=== PATIENT | female | born 1940 | race Caucasian/White ===

== ENCOUNTER 2023-08-10 14:12 | Outpatient (AMB) | payer MEDICARE, OTHER, SELFPAY ==
--- NOTE | 2023-08-10 14:36 | A.OFFPC_ITS ---
Vital Signs 08/10/23 14:46 Height 5 ft 2 in Weight 142 lb 6 oz BMI 26.0 BP 142/70 H Blood Pressure Location Lt brachial Position Sitting Pulse 78 Pulse Source Pulse Oximeter Pulse Oximetry (%) 98 Oxygen Delivery Method Room Air Intake Visit Reasons: HLD Gas Pump Attendant Required: No Accompanied by: Self / Same As Patient Allergies No Known Allergies Allergy (Verified 08/10/23 14:58) Medication List - Last Reconciled 08/10/23 by Eusebio Muñoz PA-C alprazolam 0.25 mg PO TID PRN amlodipine 10 mg PO DAILY hydrochlorothiazide 12.5 mg PO DAILY nystatin 1 appl topical BID 30 days nystatin 1 appl topical BID 30 days Tobacco use date assessed: 01/23/22 Fall risk assessment: No Falls in past year Last assessed Fall Risk: 08/10/23 Dental Screening Dental Screen Date: 08/10/23 Did you have a dental visit in the last 12 months?: Yes Did you have a dental problem in the last 6 months where you did not have access to dental care?: No Was dental information given to patient?: Patient has dentist HPI HLD HPI Details Patient is a 83 year female here today for follow-up visit. Patient has a past history significant for hypertension, HLD, generalized anxiety disorder, macular degeneration Concern--> reports she has been having decreased hearing over the last several years. She would like to get a hearing exam to evaluate for any sense of neural hearing loss and the need for amplification. .. HTN: Blood pressure has been well managed with current dose of amlodipine and hydrochlorothiazide. Denies any chest pain, dizziness or headaches. Blood pressure today in office slightly elevated. She reports that home blood pressures are stable 110s to 120 systolic. .. HLD: Most recent labs showing improved total cholesterol and LDL--> chol (250) and LDL (154) . She has been more physically active and watching her diet. She is not interested in restarting statin therapy as it caused her myalgias. Macular degeneration: Has underwent new treatment with her clinical research nurse coordinator in now macular degeneration is much improved. [facility] Medical History Encounter for Medicare annual wellness exam Exposure to COVID-19 virus Generalized anxiety disorder HTN (hypertension) Visit for suture removal Surgical History History of cataract surgery History of hysterectomy Family History Mother No problems noted. Father No problems noted. Social History Housing: House Alcohol intake: never Patient Tobacco Use Status: Never used Tobacco e-Cigarette/Vaping Use: Never Used Second Hand Smoke Exposure: No service: No Current occupational status: retired Cognitive needs: No Hearing needs: No Vision needs: Yes Questionnaire Thrive Questionnaire Date Thrive assessed: 12/22/22 AAYUSH-7 AMB Questionnaire AAYUSH-7 Date AAYUSH - 7 assessed: 12/22/22 Source: Developed by Drs. Fadi Millan, Za Brooks, Arnoldo Mendez and colleagues, with an educational sophie from [employer]. Review of Systems Const Denies headache(s) Eyes Denies loss of vision ENT Denies vertigo, Denies dizziness, Denies headache(s) and Denies sore throat Card Denies chest pain, Denies leg edema and Denies lightheadedness Resp Denies cough, Denies hemoptysis and Denies wheezing GI Denies abdominal pain, Denies melena, Denies constipation, Denies diarrhea and Denies vomiting Denies urinary frequency, Denies dysuria and Denies urinary urgency Musc Denies arthralgias, Denies joint swelling, Denies numbness and Denies tingling Neuro Denies Abnormal speech present, Denies behavioral changes, Denies vertigo, Denies dizziness, Denies headache(s), Denies loss of vision, Denies memory loss, Denies numbness and Denies tingling Psych Denies anxiety, Denies behavioral changes, Denies depression, Denies memory loss and Denies panic attacks Alex/Lymph Denies easy bleeding and Denies easy bruising Aller/Immun Denies wheezing Physical exam (Primary Care) Vital Signs: Last Vital Signs Pulse 78 08/10/23 14:46 BP 142/70 H 08/10/23 14:46 Pulse Ox 98 08/10/23 14:46 Oxygen Delivery Method Room Air 08/10/23 14:46 BMI result Body Mass Index 26.0 Tobacco/Smoking Status: Tobacco use Status Tobacco use date assessed 01/23/22 08/10/23 14:37 Patient Tobacco Use Status Never used Tobacco 08/10/23 14:37 e-Cigarette/Vaping Use Never Used 08/10/23 14:37 Thrive Assessment: Date of Thrive Assessment Date Thrive assessed 12/22/22 08/10/23 14:37 Const General: healthy appearing, no acute distress, alert and awake Nutritional Appearance: well nourished Orientation/consciousness: oriented to person, oriented to place and oriented to time HENMT Ears: TM's normal bilaterally General nose exam: Normal nasal mucous membranes and turbinates present Eyes Conjunctivae: conjunctivae normal Sclerae: sclerae normal Pupils: Equal, round and reactive pupils present Neck Neck: Yes no lymphadenopathy and Yes no JVD Thyroid: Thyroid normal Carotids: no bruits Resp Effort & Inspection: normal respiratory effort and not tachypneic Auscultation: no crackles, no rales, no rhonchi and no wheezes Cardio Rate: regular rate Rhythm: regular rhythm Heart sounds: no murmurs and normal S1 and S2 GI Palpation (GI): Soft to palpation, nontender, no hepatomegaly and no splenomegaly Auscultation: normal bowel sounds Skin General skin exam: no rashes or lesions noted and dry skin Neuro General: oriented to person, oriented to place and oriented to time Cranial nerves: Yes Equal, round and reactive pupils present Speech: No Abnormal speech present Gait exam (Neuro): Normal gait present Motor exam (neuro): no tremor noted Extrem Right upper extremity: full ROM Left upper extremity: full ROM Right lower extremity: full ROM; no edema Left lower extremity: full ROM; no edema Psych Mental Status: mental status grossly normal Speech and movement: Normal speech and movement present Affect: normal affect Attitude: cooperative Thought process: Normal thought process present Office Procedures Flu Questionnaire Does the patient have a severe egg allergy?: No Does the patient have severe life threatening allergies?: No Does the patient have a fever or illness today?: No Has the patient ever had Guillain-[place] Syndrome?: No Has the patient ever had any past reaction to a flu shot?: No Immunizations flu vacc [id number] 6mos up(PF) 60 mcg(15 mcgx4)/0.5 mL IM syringe Performing Provider: Eusebio Muñoz PA-C Performing Location: [facility] by: MAXIMILIAN Aguero on 08/10/23 15:16 Dose Route Admin Location Dispensed Lot Number Expiration Date NDC Tobacco Drying Machine Operator 0.5 mL IM Left Deltoid 0.5 mL [id number] 04/02/24 56089-491-99 Air[employer] VIS Given Date VIS Provided VIS Publication Date 08/10/23 Single Vaccine 21 Eligibility Eligibility Date Funding Source Not [facility] Eligible 08/10/23 Private Assessment and Plan Assessment & Plan (1) HTN (hypertension): Code(s): I10 - Essential (primary) hypertension Qualifiers: Hypertension type: primary hypertension Qualified Code(s): I10 - Essential (primary) hypertension Plan: Blood pressure today in office slightly elevated. She reports home blood pressures are 120s over 80s. Denies any chest discomfort, shortness of breath or dizziness. Continue her on her current doses of blood pressure medication with goal blood pressure to be below 145/90. (2) Hyperlipidemia: Code(s): E78.5 - Hyperlipidemia, unspecified Qualifiers: Hyperlipidemia type: mixed hyperlipidemia Qualified Code(s): E78.2 - Mixed hyperlipidemia Plan: Patient's most recent labs showing elevated total cholesterol at 250, LDL of 154, though has improved from previous. She has been working on lifestyle modifications on reducing her cholesterol. She is willing to try [place] threes. She has been on statin therapy in the past though reports side effects of polyarthralgia . Goal LDL to be below 160 (3) Sensorineural hearing loss (SNHL): Code(s): H90.5 - Unspecified sensorineural hearing loss Qualifiers: Laterality: bilateral Qualified Code(s): H90.3 - Sensorineural hearing loss, bilateral Plan: She reports decreased hearing over the last several years. She would like to get a hearing exam for evaluation for hearing aids. Orders: Orders Influenza [id number] Immunization 08/10/23 Z23 - Encounter for immunization Microalbumin, Random (w Creat) 08/10/23 I10 - Essential (primary) hypertension Comprehensive [place]. Panel Fast 08/10/23 I10 - Essential (primary) hypertension Lipid Panel 08/10/23 E78.2 - Mixed hyperlipidemia Complete Blood Count no Diff 08/10/23 I10 - Essential (primary) hypertension Referrals Speech and Hearing Referral H90.3 - Sensorineural hearing loss, bilateral Medications: Changed From alprazolam 0.25 mg PO TID PRN 20 tabs 0RF anxiety To alprazolam 0.25 mg PO TID 4 days 12 tabs 0RF anxiety Coding Level of Care Code Est Pt Level 4 (46913) Diagnoses Primary hypertension I10 Hypertension type: primary hypertension Mixed hyperlipidemia E78.2 Hyperlipidemia type: mixed hyperlipidemia Sensorineural hearing loss (SNHL) of both ears H90.3 Laterality: bilateral
[2023-08-10 14:46] VITALS: BP 142/70; PULSE 78; O2SAT 98; BMI 26.0
== END 2023-08-10 15:34 | disposition home or self-care (01) ==
PROVIDERS: PCP Physician Assistant; Visit Provider Physician Assistant
DX: Z23 Encounter for immunization (principal)
CPT/HCPCS: 90471; 90686; 99214

== ENCOUNTER 2024-04-05 11:16 | Emergency (ER) | payer OTHER, MEDICARE, SELFPAY ==
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
[2024-04-05 11:22] VITALS: BP 180/100; PULSE 98; O2SAT 99
[2024-04-05 11:23] VITALS: BP 175/81; PULSE 93; RESP 19; TEMP 36.6; O2SAT 98; BMI 28.7
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
--- OUTSIDE RECORDS SUMMARY | 2024-04-05 12:00 | XMS_ITS | Continuity of Care Document ---
Author Organization [facility] ter Address [address] [place] [id number]- Care Team Providers Care Furniture Assembler Name Role Phone Valentin De Santiago MD Primary Care Physician Encounter [facility] [place] Date(s): 11/13/19 - 11/13/[address] [address]- [facility] Attending Physician: Valentin De Santiago MD Allergies, Adverse Reactions, Alerts Substance Reaction Severity Status NKA Active Medications meloxicam 7.5 mg oral tablet 1 tablet = 7.5 mg, By Mouth, Daily, # 30 tablet, 1 Refills, Maintenance, 02/06/15 17:05:56, Tablet,1 tablet By Mouth Daily Start Date: 02/06/15 Status: Ordered Supartz 10 mg/mL intra-articular solution = 25 mg, Intra-arterial, Every week, Lot # [id number] exp 05/03/2018, # 2.5 mL, 0 Refills, Maintenance, 08/14/15 16:16:05, Solution Start Date: 08/14/15 Status: Ordered Supartz 10 mg/mL intra-articular solution = 25 mg, Intra-arterial, Every week, L Knee injected by Dr. Barajas Lot #[id number] exp 05/03/18, # 2.5 mL, 0 Refills, Maintenance, 08/23/15 11:50:28, Solution Start Date: 08/23/15 Status: Ordered Voltaren Topical 1% topical gel 1 application, Topically, 4 times a day, PRN for pain, # 100 Gm, 0 Refills, Maintenance, 03/12/15 11:51:42, Gel, 1 application Topically 4 times a day,PRN:for pain Start Date: 03/12/15 Status: Ordered Social History Social History Type Response Smoking Status Never smoker entered on: 03/25/16 Sex
--- OUTSIDE RECORDS SUMMARY | 2024-04-05 12:00 | XMS_ITS | Continuity of Care Document ---
Author Organization [facility] Address [address] [place] [address], [address] [place] [address]- Care Team Providers Care Art Conservator Name Role Phone Valentin De Santiago MD [facility] Phys[id number] Date(s): [facility]/23/22 - 05/23/22 [facility] [address] [facility] [place] [address]- Attending Physician: Jovanny Ewing Admitting Physician: AdmJovanny segovia Referring Physician: Admtr, [id number] Allergies, Adverse Reactions, Alerts No Known Allergies Immunizations Given and Recorded Vaccine Date Status Refusal Reason tetanus/diphtheria/pertussis, acel(Tdap) 01/16/22 Given Medications meloxicam 7.5 mg oral tablet 1 tablet = 7.5 mg, By Mouth, Daily, # 30 tablet, 1 Refills, Maintenance, 02/06/15 17:05:56, Tablet,1 tablet By Mouth Daily Start Date: 02/06/15 Status: Ordered Supartz 10 mg/mL intra-articular solution = 25 mg, Intra-arterial, Every week, Lot # [id number] exp 05/03/2018, # 2.5 mL, 0 Refills, Maintenance, 08/14/15 16:16:05, Solution Start Date: 08/14/15 Status: Ordered Supartz 10 mg/mL intra-articular solution = 25 mg, Intra-arterial, Every week, L Knee injected by Dr. Barajas Lot #[id number] 05/03/18, # 2.5 mL, 0 Refills, [...]
--- OUTSIDE RECORDS SUMMARY | 2024-04-05 12:00 | XMS_ITS | Continuity of Care Document ---
[facility] Address [address] [place] [address], [address] [address]- Care Team Providers Care Bit Grinder Name Role Phone Valentin De Santiago MD Primary Care Physician [phone] [id number] [address] [facility] [place] [address]- Attending Physician: Faye Pond MD Referring Physician: Eusebio Castro Allergies, Adverse Reactions, Alerts No Known Allergies [...] 25 mg, Intra-arterial, Every week, Lot # [id number] exp 05/03/2018, # 2.5 mL, 0 Refills, Maintenance, 08/14/15 16:16:05, Solution Start Date: 08/14/15 Status: Ordered Supartz 10 mg/mL intra-articular solution = 25 mg, Intra-arterial, Every week, L Knee injected by Dr. Barajas Lot #[id number] exp 05/03/18, # 2.5 mL, 0 Refills, [...]
--- OUTSIDE RECORDS SUMMARY | 2024-04-05 12:00 | XMS_ITS | Continuity of Care Document ---
Author Organization [facility] Address [address] [place] [address]- Care Team Providers Care Mixer Operator Vacuum Pan Salt Name Role Phone Valentin De Santiago MD Primary Care Physician [phone] Encounter [facility] [place] Date(s): 01/16/22 - 01/16/[address] [address]- Discharge Disposition: A-D/C Home Attending Physician: Latha Gavin MD Admitting Physician: Latha Gavin MD Referring Physician: Not on Staff, Referring MD Allergies, Adverse Reactions, Alerts No Known Allergies [...] 25 mg, Intra-arterial, Every week, Lot # [id number] exp 05/03/2018, # 2.5 mL, 0 Refills, Maintenance, 08/14/15 16:16:05, Solution Start Date: 08/14/15 Status: Ordered Supartz 10 mg/mL intra-articular solution = 25 mg, Intra-arterial, Every week, L Knee injected by Dr. Barajas Lot #[id number] exp 05/03/18, # 2.5 mL, 0 Refills, Maintenance, 08/23/15 11:50:28, Solution Start Date: 08/23/15 Status: Ordered Voltaren Topical 1% topical gel 1 application, Topically, 4 times a day, PRN for pain, # 100 Gm, 0 Refills, Maintenance, 03/12/15 11:51:42, Gel, 1 application Topically 4 times a day,PRN:for pain Start Date: 03/12/15 Status: Ordered Vital Signs Most recent to oldest [Reference Range]: 1 2 Height 158 cm (01/16/22 5:01 PM) 158 cm (01/16/22 4:59 PM) Weight 67 kg (01/16/22 5:01 PM) 67 kg (01/16/22 4:59 PM) Oxygen Saturation [94-100 %] 97 % (01/16/22 7:00 PM) 100 % (01/16/22 4:59 PM) Pulse Rate [55-90 bpm] 94 bpm *H* (01/16/22 7:00 PM) 116 bpm *H* (01/16/22 4:59 PM) Body Mass Index [18.5-24.99] 26.84 *H* (01/16/22 4:59 PM) Blood Pressure [90-138/55-84 mm Hg] 185/ 92mm Hg *H* (01/16/22 7:00 PM) 182/94mm Hg *H* (01/16/22 4:59 PM) Respiratory Rate [16-30 br/min] 20 br/mi n (01/16/22 7:00 PM) 22 br/min (01/16/22 4:59 PM) Temperature [96.8-100.4 DegF] 98.3 DegF (01/16/22 4:59 PM) Mode of Delivery (Oxygen) Room air (01/16/22 7:00 PM) Room air (01/16/22 4:59 PM) Blood pressure sites Arm, right (01/16/22 4:59 PM) Temperature Route Temporal (01/16/22 4:59 PM) Dry Weight 67 kg (01/16/22 5:01 PM) 67 kg (01/16/22 4:59 PM) Social History Social History Type Response Smoking Status Never smoker entered on: 03/25/16 Sex
[2024-04-05 12:14] LABS: MANUAL DIFF FLAG NO
[2024-04-05 12:20] LABS: Basophils Percent Auto 0.4 % (0-2); Eosinophils Absolute Auto 0.2 X10*3/uL (0.0-0.4); Eosinophils Percent Auto 3.2 % (0-4); Hematocrit 35.8 % (37.0-47.0); Hemoglobin 12.3 g/dl (12.0-16.0); Imm Gran Abs Auto 0.03 X10*3/uL (0.00-0.03); Imm Gran Pct Auto 0.6 % (0.0-0.4); Lymphocytes Absolute Auto 1.1 X10*3/uL (1.2-4.9); Lymphocytes Percent Auto 21.2 % (20-40); Mean Corpuscular HGB Conc 34.4 g/dl (31.0-35.0); Mean Corpuscular Hemoglobin 29.9 pg (27.0-33.0); Mean Corpuscular Volume 87.1 fL (80.0-98.0); Mean Platelet Volume 9.2 fL (9.4-12.3); Monocytes Absolute Auto 0.3 X10*3/uL (0.1-1.2); Monocytes Percent Auto 5.5 % (2-11); Neutrophils Absolute Auto 3.6 x10*3/uL (2.0-8.3); Neutrophils Percent Auto 69.1 % (45-73); Platelet Count 248 X10*3/uL (160-400); Red Blood Count 4.11 X10*6/uL (4.20-5.50); White Blood Count 5.2 X10*3/uL (4.8-10.8)
[2024-04-05 12:33] LABS: Alanine Aminotransferase 14 U/L (0-31); Albumin Level 4.2 g/dL (3.5-5.0); Alkaline Phosphatase 89 U/L (39-117); Anion Gap 14 (12-20); Aspartate Amino Transferase 13 U/L (5-31); Bilirubin Total 0.4 mg/dL (0.0-1.0); Blood Urea Nitrogen 15 mg/dL (9-16); Calcium 9.8 mg/dL (8.4-10.2); Carbon Dioxide 26 mmol/L (22-29); Chloride 105 mmol/L (96-108); Creatinine Clr Calc Pharmacy 61.1; Estimated Glomerular Filt Rate > 60; Glucose Random 106 mg/dL (60-115); Potassium 2.6 mmol/L (3.3-5.1); Sodium 142 mmol/L (135-145)
[2024-04-05 12:40] LABS: INTERNATIONAL NORM RATIO 0.9 (0.9-1.1); Prothrombin Time 10.5 SEC (11.1-13.3)
[2024-04-05 12:43] LABS: Partial Thromboplastin Time 25.4 SEC (26.0-36.8)
[2024-04-05 13:52] LABS: Magnesium 1.8 mg/dL (1.6-2.6)
[2024-04-05] MEDS: iohexoL 350 MG/ML 100 ML INFUS..BTL IV (13:59)
[2024-04-05] MEDS: Potassium Chloride ER 20 MEQ TAB.ER.PRT PO (16:11)
[2024-04-05] MEDS: Potassium Chloride Packet 20 MEQ PACKET 40 MEQ PO (16:11)
[2024-04-05 16:16] VITALS: BP 166/79; PULSE 92; RESP 20; TEMP 36.6; O2SAT 97
== END 2024-04-05 16:17 | disposition home or self-care (01) ==
PROVIDERS: Physician Assistant Medical; Emergency Provider Emergency Medicine
DX: R07.9 Chest pain, unspecified (principal); R10.9 Unspecified abdominal pain; Z04.1 Encounter for examination and observation following transport accident; I10 Essential (primary) hypertension; E78.5 Hyperlipidemia, unspecified; E87.6 Hypokalemia
CPT/HCPCS: 36415; 70450; 71260; 72125; 74177; 80053; 83735; 85025; 85610; 85730; 99283; 99284; Q9967

== ENCOUNTER 2024-04-17 10:47 | Outpatient (AMB) | payer OTHER, SELFPAY ==
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
[2024-04-17 10:48] VITALS: BP 154/70; PULSE 74; O2SAT 98; BMI 28.1
== END 2024-04-17 11:43 | disposition home or self-care (01) ==
LOC: HO.HMGH 10:47
PROVIDERS: PCP Physician Assistant; Visit Provider Physician Assistant
DX: R07.81 Pleurodynia (principal); V89.2XXA Person injured in unspecified motor-vehicle accident, traffic, initial encounter; E87.6 Hypokalemia
CPT/HCPCS: 99214

== ENCOUNTER 2024-04-21 08:42 | Outpatient (REF) | payer MEDICARE, SELFPAY | END 2024-04-21 08:43 | disposition home or self-care (01) | LOC: HO.MAMMO 08:42 | PROVIDERS: PCP Physician Assistant; Visit Provider Physician Assistant | DX: Z12.31 Encounter for screening mammogram for malignant neoplasm of breast (principal) | CPT/HCPCS: 77063; 77067 ==

== ENCOUNTER → 2024-04-21 08:45 | Outpatient (BNV) | payer MEDICARE, SELFPAY | PROVIDERS: PCP Physician Assistant; Visit Provider Radiology Diagnostic Radiology | DX: Z12.31 Encounter for screening mammogram for malignant neoplasm of breast (principal) | CPT/HCPCS: 77063; 77067 ==

== ENCOUNTER 2024-06-20 10:25 | Outpatient (AMB) | payer MEDICARE, SELFPAY ==
--- NOTE | 2024-06-20 10:27 | MHC.PC.OV ---
Vital Signs 06/20/24 10:29 Height 5 ft 1 in Weight 149 lb 4 oz BMI 28.2 BP 138/70 Blood Pressure Location Lt brachial Position Sitting Pulse 63 Pulse Source Pulse Oximeter Pulse Oximetry (%) 97 Oxygen Delivery Method Room Air Intake Visit Reasons: Pre-Op Knee Surgery 07/04/24 DR. Lott Note: Patient is here for a Pre-op for Partial right knee replacement surgery scheduled with Dr Van Joseph on 07/04/24. Code And Test Clerk Required: No Laboratory Veterinarian: Not Required per policy Accompanied by: Self / Same As Patient Allergies No Known Allergies Allergy (Verified 06/20/24 10:49) Medication List - Last Reconciled 06/20/24 by Michela Yadav PA-C amlodipine 10 mg PO DAILY Tobacco use date assessed: 06/20/24 Fall risk assessment: No Falls in past year Last assessed Fall Risk: 06/20/24 Dental Screening Dental Screen Date: 04/17/24 HPI Pre-Op Knee Surgery 07/04/24 HPI Details 83-year-old female with past medical history of hypertension, hyperlipidemia, generalized anxiety disorder, macular degeneration last seen by RUBI coming in for preoperative visit.? Patient is scheduled to have partial knee replacement 07/04/[address] Joseph through [employer] [facility]. No history of MT, CVA, CHF or diabetes mellitus. Patient has had anesthesia in the past with no issue and states he will be using a nerve block with conscious sedation for this procedure. She has no acute concerns today. Hypertension: 130/70 blood pressure is well controlled at this time on amlodipine 10 mg. [facility] Medical History Visit for suture removal Encounter for Medicare annual wellness exam Generalized anxiety disorder Exposure to COVID-19 virus HTN (hypertension) Surgical History (Updated 06/20/24 @ 10:50 by Michela Yadav PA-C) S/P right knee arthroscopy History of cataract surgery History of hysterectomy Family History Mother No problems noted. Father No problems noted. Social History Housing: House Alcohol intake: never Patient Tobacco Use Status: Never used Tobacco e-Cigarette/Vaping Use: Never Used Second Hand Smoke Exposure: No service: No Current occupational status: retired Cognitive needs: No Hearing needs: No Vision needs: Yes Questionnaire Thrive Questionnaire Date Thrive assessed: 04/17/24 Are you currently unemployed and looking for a job?: No AAYUSH-7 AMB Questionnaire AAYUSH-7 Date AAYUSH - 7 assessed: 04/17/24 Source: Developed by Drs. Fadi Millan, Za Brooks, Arnoldo Mendez and colleagues, with an educational sophie from [email or web address]. Review of Systems Const Denies body aches, Denies chills, Denies fever(s), Denies headache(s) and Denies poor appetite Eyes Reports no additional complaints ENT Denies dysphagia, Denies dizziness, Denies headache(s) and Denies odynophagia Card Denies chest pain, Denies syncope, Denies edema, Denies irregular heart rhythm, Denies lightheadedness and Denies dyspnea Resp Denies cough and Denies dyspnea GI Denies abdominal pain, Denies constipation, Denies dysphagia, Denies diarrhea, Denies nausea, Denies odynophagia and Denies vomiting Reports no additional complaints Musc Details: Right knee pain Reports no additional complaints and Reports abnormal gait Skin/Breast Reports system reviewed and no additional complaints, except as documented Neuro Reports abnormal gait, Denies dizziness, Denies syncope and Denies headache(s) Psych Reports no additional complaints Physical exam (Primary Care) Vital Signs: Last Vital Signs Pulse 63 06/20/24 10:29 BP 138/70 06/20/24 10:29 Pulse Ox 97 06/20/24 10:29 Oxygen Delivery Method Room Air 06/20/24 10:29 BMI result Body Mass Index 28.2 Tobacco/Smoking Status: Tobacco use Status Tobacco use date assessed 06/20/24 06/20/24 10:35 Patient Tobacco Use Status Never used Tobacco 06/20/24 10:35 e-Cigarette/Vaping Use Never Used 06/20/24 10:35 Thrive Assessment: Date of Thrive Assessment Date Thrive assessed 04/17/24 06/20/24 10:35 Const General: cooperative, healthy appearing, comfortable and no acute distress Orientation/consciousness: patient oriented x3 HENMT Head: Yes normocephalic Ears: hearing grossly normal bilaterally General nose exam: Normal external nose present Eyes General: appearance normal, both eyes and all related structures Conjunctivae: conjunctivae normal Neck Neck: Yes full ROM and Yes no lymphadenopathy Resp Effort & Inspection: normal respiratory effort Auscultation: clear to auscultation bilaterally, no crackles, no rales, no rhonchi and no wheezes Cardio Rate: regular rate Rhythm: regular rhythm Skin General skin exam: no rashes or lesions noted Neuro General: patient oriented x3 Gait exam (Neuro): Normal gait present Extrem General: Yes normal to inspection, Yes full ROM and No edema Psych Affect: normal affect Attitude: cooperative Insight: Good insight present (Psych) Judgement: Good judgement present (Psych) Assessment and Plan Assessment & Plan (1) Pre-op evaluation: Code(s): Z01.818 - Encounter for other preprocedural examination Plan: Regarding preop clearance, the patient is at moderate risk for proposed surgery due to her age however her comorbidities are well managed at this time. Reviewed with the patient that no surgery is completely free of risk and that this examination is to assist the surgeon in reviewing informed consent. Last labs completed 06/15/2024 and within normal limits with the exception of low vitamin-D and mild elevation in creatinine from the labs prior. Chest x-ray and urinalysis not indicated for this patient. EKG obtained and showed normal sinus rhythm with no evidence of heart block or arrhythmia. Patient is not currently on any blood thinners or antiplatelet medications. Patient does take ibuprofen daily and advised to discontinue 7 days prior to surgery as it can thin the blood. Advised patient to take her amlodipine the morning of the procedure and we will also start on vitamin D3 as her levels were low on last labs. Vitamin D3 can be held the morning of the procedure. Plan This note was constructed using voice recognition software. While every effort has been made to ensure accuracy and inbound ingredient logistics specialist, still areas may have been included sometimes these areas may affect the content or meeting of the given symptoms. Total time spent caring for the patient today was 30 minutes. This includes time spent before the visit reviewing the chart, time spent during the visit, and time spent after the visit and documentation. Medications: New cholecalciferol (vitamin D3) 25 mcg PO DAILY 30 caps 2RF Coding Level of Care Code Est Pt Level 4 (13784) Diagnoses Pre-op evaluation Z01.818
[2024-06-20 10:29] VITALS: BP 138/70; PULSE 63; O2SAT 97; BMI 28.2
== END 2024-06-20 10:58 | disposition home or self-care (01) ==
PROVIDERS: PCP Physician Assistant
DX: Z01.818 Encounter for other preprocedural examination (principal)

== ENCOUNTER → 2024-06-20 10:25 | Outpatient (REF) | payer MEDICARE, OTHER, SELFPAY ==
--- NOTE | 2024-06-20 11:10 | ECG_ITS ---
Test Reason : PREOP Blood Pressure : / mmHG Vent. Rate : 072 BPM Atrial Rate : 072 BPM P-R Int : 174 ms QRS Dur : 076 ms QT Int : 404 ms P-R-T Axes : 065 -12 029 degrees QTc Int : 442 ms Normal sinus rhythm Normal ECG When compared with ECG of 02-FEB-2003 09:22, No significant change was found Referred By: Michela Yadav Electronically Signed By:KOKO MERCADO
== END ==
LOC: HO.CARD 10:25
PROVIDERS: PCP Physician Assistant
DX: Z01.818 Encounter for other preprocedural examination (principal)
CPT/HCPCS: 93005; 99212

== ENCOUNTER 2024-08-14 14:14 | Outpatient (AMB) | payer MEDICARE, OTHER, SELFPAY ==
[2024-08-14 14:16] VITALS: BP 150/60; PULSE 77; O2SAT 97; BMI 28.3
--- NOTE | 2024-08-14 14:16 | MHC.PC.OV ---
Vital Signs 08/14/24 14:16 08/14/24 15:07 Height 5 ft 1 in Weight 150 lb BMI 28.3 BP 150/60 H 142/70 H Blood Pressure Location Lt brachial Position Sitting Pulse 77 Pulse Source Pulse Oximeter Pulse Oximetry (%) 97 Oxygen Delivery Method Room Air Intake Visit Reasons: Annual Exam Intake Note: Patient is here today for a physical. 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 Patient has a past history significant for hypertension, HLD, generalized anxiety disorder, macular degeneration Concern--> recently underwent right knee replacement in July and still is in recovery. She feels she is walking better though still has pretty significant pain and swelling. She is concerned about using ibuprofen as she had some decrease in her GFR secondary to using a lot of ibuprofen. She is asking for as needed pain medication to use before therapy in for pain scales of 8-10. She also reports she has been having a lot of urination at night. She sometimes has accidents due to urinary urgency. She is interested in medication to help her with an overactive bladder. .. HTN: Blood pressure today in office elevated. Likely secondary to her right knee pain. Blood pressure has been well managed with current dose of amlodipine Denies any chest pain, dizziness or headaches. Blood pressure today in office slightly elevated. She reports that home blood pressures are stable 110s to 120 systolic. .. HLD: Waiting results from most recent fasting lipid panel.. Previously lipid panel showing improved total cholesterol and LDL--> chol (250) and LDL (154) . She has been more physically active and watching her diet. She is not interested in restarting statin therapy as it caused her myalgias. [facility] Medical History Visit for suture removal Encounter for Medicare annual wellness exam Generalized anxiety disorder Exposure to COVID-19 virus HTN (hypertension) Surgical History S/P right knee arthroscopy History of cataract surgery History of hysterectomy Family History Mother No problems noted. Father No problems noted. Social History Housing: House Alcohol intake: never Patient Tobacco Use Status: Never used Tobacco e-Cigarette/Vaping Use: Never Used Second Hand Smoke Exposure: No service: No Current occupational status: retired Cognitive needs: No Hearing needs: Yes Vision needs: Yes Questionnaire PHQ-9 Over the last 2 weeks, how often have you been bothered by any of the following problems? 1. Little interest or pleasure in doing things: not at all 2. Feeling down, depressed, or hopeless: not at all 3. Trouble falling or staying asleep, or sleeping too much: not at all 4. Feeling tired or having little energy: not at all 5. Poor appetite or overeating: not at all 6. Feeling bad about yourself - or that you are a failure or have let yourself or your family down: not at all 7. Trouble concentrating on things, such as reading the newspaper or watching television: not at all 8. Moving or speaking so slowly that other people could have noticed. Or the opposite - being so fidgety or restless that you have been moving around a lot more than usual: not at all 9. Thoughts that you would be better off or of hurting yourself in some way: not at all Total score: 0 Depression Screening Interpretation: Negative Depression Screening Done: Yes 24744 - PHQ-9 Billing: Yes Source: Developed by Drs. Fadi Millan, Za Brooks, Arnoldo Mendez and colleagues, with an educational sophie from [employer]. Thrive Questionnaire Date Thrive assessed: 08/12/24 I am a: Patient What is your living situation today?: I choose not to answer this question Within the past 12 months, did the food you bought not last and you didn't have the money to get more?: I choose not to answer this question Within the past 12 months, did you worry whether your food would run out before you got money to buy more?: I choose not to answer this question Do you have trouble paying for medicines?: I choose not to answer this question Do you have trouble getting transportation to medical appointments?: I choose not to answer this question Do you have trouble paying your heating and electricity bill?: I choose not to answer this question Do you have trouble taking care of your child, family member or friend?: I choose not to answer this question Do you have trouble with day-to-day activities such as bathing, preparing meals, shopping, managing finances, etc.?: I choose not to answer this question Are you currently unemployed and looking for a job?: No Are you interested in more education?: I choose not to answer this question Please select the resources that you would like help with: None Currently or been in a relationship where the following occur: I choose not to answer THRIVE Score: 0 AUDIT C Alcohol Use Questionnaire (AUDIT-C) 1. How often do you have a drink containing alcohol?: Never 3. How often do you have six or more drinks on one occasion?: Never Total Score: 0 AAYUSH-7 AMB Questionnaire AAYUSH-7 Date AAYUSH - 7 assessed: 08/14/24 Feeling nervous, anxious, or on edge: 0 = Not at all Not being able to stop or control worryin = Not at all Worrying too much about different things: 0 = Not at all Trouble relaxin = Not at all Being so restless that it is hard to sit still: 0 = Not at all Becoming easily annoyed or irritable: 0 = Not at all Feeling afraid as if something awful might happen: 0 = Not at all Total AAYUSH-7 score (0-4 normal; 5-9 mild; 10-14 moderate; 15-21 severe): 0 Source: Developed by Drs. Fadi Millan, Za Brooks, Arnoldo Mendez and colleagues, with an educational sophie from [employer]. AAYUSH-7 Assessment Billing AAYUSH-7 Assessment Tool: AAYUSH-7 Assessment 50522 Review of Systems Const Denies headache(s) Eyes Denies loss of vision ENT Denies vertigo, Denies dizziness, Denies headache(s) and Denies sore throat Card Denies chest pain, Denies leg edema and Denies lightheadedness Resp Denies cough, Denies hemoptysis and Denies wheezing GI Denies abdominal pain, Denies melena, Denies constipation, Denies diarrhea and Denies vomiting Denies urinary frequency, Denies dysuria, Reports urinary incontinence and Reports urinary urgency Musc Denies arthralgias, Denies joint swelling, Denies numbness and Denies tingling Neuro Denies Abnormal speech present, Denies behavioral changes, Denies vertigo, Denies dizziness, Denies headache(s), Denies loss of vision, Denies memory loss, Denies numbness and Denies tingling Psych Denies anxiety, Denies behavioral changes, Denies depression, Denies memory loss and Denies panic attacks Alex/Lymph Denies easy bleeding and Denies easy bruising Aller/Immun Denies wheezing Physical exam (Primary Care) Vital Signs: Last Vital Signs Pulse 77 08/14/24 14:16 BP 142/70 H 08/14/24 15:07 Pulse Ox 97 08/14/24 14:16 Oxygen Delivery Method Room Air 08/14/24 14:16 BMI result Body Mass Index 28.3 Tobacco/Smoking Status: Tobacco use Status Tobacco use date assessed 06/20/24 08/14/24 14:17 Patient Tobacco Use Status Never used Tobacco 08/14/24 14:17 e-Cigarette/Vaping Use Never Used 08/14/24 14:17 PHQ-9: PHQ-9 Score PHQ-9: Total score 0 08/14/24 14:53 Depression Screening Interpretation: Negative Thrive Assessment: Date of Thrive Assessment Date Thrive assessed 08/12/24 08/14/24 14:17 Currently or been in a relationship where the following occur: I choose not to answer Const General: healthy appearing, no acute distress, alert and awake Nutritional Appearance: well nourished Orientation/consciousness: oriented to person, oriented to place and oriented to time HENMT Ears: TM's normal bilaterally General nose exam: Normal nasal mucous membranes and turbinates present Eyes Conjunctivae: conjunctivae normal Sclerae: sclerae normal Pupils: Equal, round and reactive pupils present Neck Neck: Yes no lymphadenopathy and Yes no JVD Thyroid: Thyroid normal Carotids: no bruits Resp Effort & Inspection: normal respiratory effort and not tachypneic Auscultation: no crackles, no rales, no rhonchi and no wheezes Cardio Rate: regular rate Rhythm: regular rhythm Heart sounds: no murmurs and normal S1 and S2 GI Palpation (GI): Soft to palpation, nontender, no hepatomegaly and no splenomegaly Auscultation: normal bowel sounds Skin General skin exam: no rashes or lesions noted and dry skin Neuro General: oriented to person, oriented to place and oriented to time Cranial nerves: Yes Equal, round and reactive pupils present Speech: No Abnormal speech present Gait exam (Neuro): Normal gait present Motor exam (neuro): no tremor noted Extrem Right upper extremity: full ROM Left upper extremity: full ROM Right lower extremity: full ROM; no edema Left lower extremity: full ROM; no edema Psych Mental Status: mental status grossly normal Speech and movement: Normal speech and movement present Affect: normal affect Attitude: cooperative Thought process: Normal thought process present Coding Level of Care Code Est Pt Level 4 (80095) Diagnoses Status post right knee replacement Z96.651 Overactive bladder N32.81 Mixed hyperlipidemia E78.2 Hyperlipidemia type: mixed hyperlipidemia Primary hypertension I10 Hypertension type: primary hypertension Additional Codes AAYUSH-7 Assessment Billing - AAYUSH-7 Assessment Tool: AAYUSH-7 Assessment 98206 ([id number]) PHQ-9 - 31905 - PHQ-9 Billing: Yes ([id number]) Assessment & Plan Assessment & Plan (1) Status post right knee replacement: Code(s): Z96.651 - Presence of right artificial knee joint Category: Surgical Plan: Patient underwent right total knee replacement in July. She is doing well postoperatively. She is still in some significant pain at times and will use tramadol as needed. (2) Overactive bladder: Code(s): N32.81 - Overactive bladder Category: Medical Plan: Patient reports getting up several times at night to go to the bathroom this has been disrupting her sleep significantly. She his interested in medication to help her with an overactive bladder. Will start low oxybutynin (3) Hyperlipidemia: Code(s): E78.5 - Hyperlipidemia, unspecified Category: Medical Qualifiers: Hyperlipidemia type: mixed hyperlipidemia Qualified Code(s): E78.2 - Mixed hyperlipidemia Plan: Patient's most recent lipid panel showing elevated total cholesterol and LDL. She has been trying to make some lifestyle and dietary modifications. Goal LDL to be below 130 (4) HTN (hypertension): Code(s): I10 - Essential (primary) hypertension Category: Medical Qualifiers: Hypertension type: primary hypertension Qualified Code(s): I10 - Essential (primary) hypertension Plan: Patient's blood pressure slightly elevated today in office. She continues on amlodipine. Has been taken off hydrochlorothiazide due to hypokalemia. Blood pressure is likely elevated due to being in some pain from her recent right total knee arthroplasty. Advised patient to continue to monitor blood pressure Medications: New oxybutynin chloride ER 5 mg PO DAILY 30 tabs 1RF 30 days N32.81 - Overactive bladder tramadol 50 mg PO Q8H PRN 21 tabs 0RF pain 7 days Z96.651 - Presence of right artificial knee joint
[2024-08-14 15:07] VITALS: BP 142/70
== END 2024-08-14 15:20 | disposition home or self-care (01) ==
PROVIDERS: PCP Physician Assistant; Visit Provider Physician Assistant
DX: Z96.651 Presence of right artificial knee joint (principal); N32.81 Overactive bladder; E78.2 Mixed hyperlipidemia; I10 Essential (primary) hypertension

== ENCOUNTER → 2024-08-14 14:14 | Outpatient (BNVA) | payer MEDICARE, OTHER, SELFPAY | PROVIDERS: PCP Physician Assistant; Visit Provider Physician Assistant | DX: N32.81 Overactive bladder (principal); E78.2 Mixed hyperlipidemia; Z96.651 Presence of right artificial knee joint; I10 Essential (primary) hypertension | CPT/HCPCS: 96127; 99212 ==

== ENCOUNTER 2024-12-13 10:34 | Outpatient (AMB) | payer MEDICARE, OTHER, SELFPAY ==
--- NOTE | 2024-12-13 11:01 | MHC.PC.OV ---
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 Accompanied by: Self / Same As Patient Allergies No Known Allergies Allergy (Verified 12/13/24 11:27) Medication List - Last Reconciled 12/13/24 by Eusebio Muñoz PA-C amlodipine 10 mg PO DAILY cholecalciferol (vitamin D3) 25 mcg PO DAILY gabapentin 300 mg PO BID 15 days Tobacco use date assessed: 12/13/24 Fall risk assessment: No Falls in past year Last assessed Fall Risk: 12/13/24 Dental Screening Dental Screen Date: 12/13/24 Did you have a dental visit in the last 12 months?: No Did you have a dental problem in the last 6 months where you did not have access to dental care?: No Was dental information given to patient?: Patient has dentist HPI f/u hld/ htn HPI Details Patient is a 84 year female here today for follow-up visit. 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 Concern--> recently seen at a local [facility] for right heel pain. X-rays showed arthritis though no heel spurs. Right total knee replacement: recently underwent right knee replacement in July and still is in recovery. She feels she is walking better though still has pretty significant pain and swelling. She is concerned about using ibuprofen as she had some decrease in her GFR secondary to using a lot of ibuprofen. Most recent labs showing stable renal function She is asking for as needed pain medication to use before therapy in for pain scales of 8-10. PLAN; will supply patient with gabapentin 300 b.i.d. and p.r.n. use of meloxicam for her pain. She also reports she has been having a lot of urination at night. She sometimes has accidents due to urinary urgency. She is interested in medication to help her with an overactive bladder. .. HTN: Patient's blood pressure acceptable today in office. Blood pressure has been well managed with current dose of amlodipine Denies any chest pain, dizziness or headaches. Blood pressure today in office slightly elevated. She reports that home blood pressures are stable 110s to 120 systolic. .. HLD: Previously lipid panel showing improved total cholesterol and LDL--> chol (250) and LDL (154) . She has been more physically active and watching her diet. She is not interested in restarting statin therapy as it caused her myalgias. PLAN: She plans on using red rice yeast, fish oil and Metamucil to try to reduce her cholesterol. .. 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 She reports her vision is fine. [facility] Medical History Visit for suture removal Encounter for Medicare annual wellness exam Generalized anxiety disorder Exposure to COVID-19 virus HTN (hypertension) Surgical History S/P right knee arthroscopy History of cataract surgery History of hysterectomy Family History Mother No problems noted. Father No problems noted. Social History Housing: House Alcohol intake: never Patient Tobacco Use Status: Never used Tobacco e-Cigarette/Vaping Use: Never Used Second Hand Smoke Exposure: No service: No Current occupational status: retired Cognitive needs: No Hearing needs: Yes Vision needs: Yes Questionnaire PHQ-9 Over the last 2 weeks, how often have you been bothered by any of the following problems? 1. Little interest or pleasure in doing things: not at all 2. Feeling down, depressed, or hopeless: not at all 3. Trouble falling or staying asleep, or sleeping too much: not at all 4. Feeling tired or having little energy: not at all 5. Poor appetite or overeating: not at all 6. Feeling bad about yourself - or that you are a failure or have let yourself or your family down: not at all 7. Trouble concentrating on things, such as reading the newspaper or watching television: not at all 8. Moving or speaking so slowly that other people could have noticed. Or the opposite - being so fidgety or restless that you have been moving around a lot more than usual: not at all 9. Thoughts that you would be better off or of hurting yourself in some way: not at all Total score: 0 Depression Screening Interpretation: Negative Depression Screening Done: Yes 91683 - PHQ-9 Billing: Yes Source: Developed by Drs. Fadi Millan, Za Brooks, Arnoldo Mendez and colleagues, with an educational sophie from [employer]. Thrive Questionnaire Date Thrive assessed: 12/13/24 I am a: Patient What is your living situation today?: I choose not to answer this question Within the past 12 months, did the food you bought not last and you didn't have the money to get more?: I choose not to answer this question Within the past 12 months, did you worry whether your food would run out before you got money to buy more?: I choose not to answer this question Do you have trouble paying for medicines?: I choose not to answer this question Do you have trouble getting transportation to medical appointments?: I choose not to answer this question Do you have trouble paying your heating and electricity bill?: I choose not to answer this question Do you have trouble taking care of your child, family member or friend?: I choose not to answer this question Do you have trouble with day-to-day activities such as bathing, preparing meals, shopping, managing finances, etc.?: I choose not to answer this question Are you currently unemployed and looking for a job?: No Are you interested in more education?: I choose not to answer this question Please select the resources that you would like help with: None Currently or been in a relationship where the following occur: I choose not to answer THRIVE Score: 0 AUDIT C Alcohol Use Questionnaire (AUDIT-C) 1. How often do you have a drink containing alcohol?: Never Total Score: 0 AAYUSH-7 AMB Questionnaire AAYUSH-7 Date AAYUSH - 7 assessed: 12/13/24 Feeling nervous, anxious, or on edge: 0 = Not at all Not being able to stop or control worryin = Not at all Worrying too much about different things: 0 = Not at all Trouble relaxin = Not at all Being so restless that it is hard to sit still: 0 = Not at all Becoming easily annoyed or irritable: 0 = Not at all Feeling afraid as if something awful might happen: 0 = Not at all Total AAYUSH-7 score (0-4 normal; 5-9 mild; 10-14 moderate; 15-21 severe): 0 Source: Developed by Drs. Fadi Millan, Za Brooks, Arnoldo Mendez and colleagues, with an educational sophie from [employer]. AAYUSH-7 Assessment Billing AAYUSH-7 Assessment Tool: AAYUSH-7 Assessment 48256 Review of Systems Const Denies headache(s) Eyes Denies loss of vision ENT Denies vertigo, Denies dizziness, Denies headache(s) and Denies sore throat Card Denies chest pain, Denies leg edema and Denies lightheadedness Resp Denies cough, Denies hemoptysis and Denies wheezing GI Denies abdominal pain, Denies melena, Denies constipation, Denies diarrhea and Denies vomiting Denies urinary frequency, Denies dysuria and Denies urinary urgency Musc Denies arthralgias, Denies joint swelling, Denies numbness and Denies tingling Neuro Denies Abnormal speech present, Denies behavioral changes, Denies vertigo, Denies dizziness, Denies headache(s), Denies loss of vision, Denies memory loss, Denies numbness and Denies tingling Psych Denies anxiety, Denies behavioral changes, Denies depression, Denies memory loss and Denies panic attacks Alex/Lymph Denies easy bleeding and Denies easy bruising Aller/Immun Denies wheezing Physical exam (Primary Care) Vital Signs: Last Vital Signs Pulse 67 12/13/24 11:07 BP 130/80 12/13/24 11:07 Pulse Ox 97 12/13/24 11:07 Oxygen Delivery Method Room Air 12/13/24 11:07 BMI result Body Mass Index 27.4 Tobacco/Smoking Status: Tobacco use Status Tobacco use date assessed 12/13/24 12/13/24 11:06 Patient Tobacco Use Status Never used Tobacco 12/13/24 11:06 e-Cigarette/Vaping Use Never Used 12/13/24 11:06 PHQ-9: PHQ-9 Score PHQ-9: Total score 0 12/13/24 11:31 Depression Screening Interpretation: Negative Thrive Assessment: Date of Thrive Assessment Date Thrive assessed 12/13/24 12/13/24 11:06 Currently or been in a relationship where the following occur: I choose not to answer Const General: healthy appearing, no acute distress, alert and awake Nutritional Appearance: well nourished Orientation/consciousness: oriented to person, oriented to place and oriented to time HENMT Ears: TM's normal bilaterally General nose exam: Normal nasal mucous membranes and turbinates present Eyes Conjunctivae: conjunctivae normal Sclerae: sclerae normal Pupils: Equal, round and reactive pupils present Neck Neck: Yes no lymphadenopathy and Yes no JVD Thyroid: Thyroid normal Carotids: no bruits Resp Effort & Inspection: normal respiratory effort and not tachypneic Auscultation: no crackles, no rales, no rhonchi and no wheezes Cardio Rate: regular rate Rhythm: regular rhythm Heart sounds: no murmurs and normal S1 and S2 GI Palpation (GI): Soft to palpation, nontender, no hepatomegaly and no splenomegaly Auscultation: normal bowel sounds Skin General skin exam: no rashes or lesions noted and dry skin Neuro General: oriented to person, oriented to place and oriented to time Cranial nerves: Yes Equal, round and reactive pupils present Speech: No Abnormal speech present Gait exam (Neuro): Normal gait present Motor exam (neuro): no tremor noted Extrem Right upper extremity: full ROM Left upper extremity: full ROM Right lower extremity: full ROM; no edema Left lower extremity: full ROM; no edema Psych Mental Status: mental status grossly normal Speech and movement: Normal speech and movement present Affect: normal affect Attitude: cooperative Thought process: Normal thought process present Coding Level of Care Code Est Pt Level 4 (88787) Diagnoses Primary hypertension I10 Hypertension type: primary hypertension Generalized anxiety disorder F41.1 Mixed hyperlipidemia E78.2 Hyperlipidemia type: mixed hyperlipidemia Exudative age-related macular degeneration of left eye, unspecified stage H35.3220 Exudative macular degeneration stage: unspecified stage Macular degeneration type: exudative age-related Additional Codes PHQ-9 - 17433 - PHQ-9 Billing: Yes ([id number]) AAYUSH-7 Assessment Billing - AAYUSH-7 Assessment Tool: AAYUSH-7 Assessment 59618 ([id number]) Assessment & Plan Assessment & Plan (1) HTN (hypertension): Code(s): I10 - Essential (primary) hypertension Category: Medical Qualifiers: Hypertension type: primary hypertension Qualified Code(s): I10 - Essential (primary) hypertension Plan: Patient's blood pressure acceptable today in office. Will continue her current dose of amlodipine with goal blood pressure to remain below 140/90 (2) Generalized anxiety disorder: Code(s): F41.1 - Generalized anxiety disorder Category: Medical Plan: Patient does report having some increased anxiety due to personal issues and family issues recently. She does have alprazolam available to her at home and does plan on using it for heart nights of sleep and increased anxiety. (3) Hyperlipidemia: Code(s): E78.5 - Hyperlipidemia, unspecified Category: Medical Qualifiers: Hyperlipidemia type: mixed hyperlipidemia Qualified Code(s): E78.2 - Mixed hyperlipidemia Plan: Most recent lipid panel showing elevated total cholesterol and LDL. We have use statin therapy in the past and has not been effective for her caused muscle aches. She reports her eating habits are fine though will try to work on reducing cholesterol in her diet.. She will start using fish oil, red rice yeast and Metamucil to help try to reduce her cholesterol. (4) Macular degeneration of left eye: Code(s): H35.30 - Unspecified macular degeneration Category: Medical Qualifiers: Exudative macular degeneration stage: unspecified stage Macular degeneration type: exudative age-related Qualified Code(s): H35.3220 - Exudative age-related macular degeneration, left eye, stage unspecified Plan: As per HPI patient followed by exhauster and getting injections in her eyes due to wet macular degeneration worse in her left eye. Orders: Orders Microalbumin, Random (w Creat) 12/13/24 I10 - Essential (primary) hypertension Comprehensive [place]. Panel Fast 12/13/24 E78.2 - Mixed hyperlipidemia Complete Blood Count no Diff 12/13/24 E78.2 - Mixed hyperlipidemia Lipid Panel 12/13/24 E78.2 - Mixed hyperlipidemia Medications: New meloxicam 15 mg PO DAILY 30 tabs 1RF 30 days M54.50 - Low back pain, unspecified Changed From gabapentin 300 mg PO BID 15 days 30 caps 0RF M54.50 - Low back pain, unspecified To gabapentin 300 mg PO BID 60 caps 1RF 30 days M54.50 - Low back pain, unspecified Patient Instructions: Goal: Blood pressure to remain below 140/90 Barriers: Adherence to physical activity and healthy eating habits
[2024-12-13 11:07] VITALS: BP 130/80; PULSE 67; O2SAT 97; BMI 27.4
--- OUTSIDE RECORDS SUMMARY | 2024-12-13 12:13 | XMS_ITS | Clinical Summary ---
Author Organization [facility] Address [facility] [place] [address] Care Team Providers Care Counterintelligence/Humint Specialist Name Role Phone Unavailable Primary Care Provider Unavailabl e Social History Tobacco Use Types Packs/Day Years Used Date Smoking Tobacco: Never Assessed Sex and Gender Information Value Date Recorded Sex Assigned at Not on file Gender Identity Not on file Sexual Orientation Not on file Plan of Treatment Health Maintenance Due Date Last Done Comments Tetanus/Diphtheria/Pertussis Vaccines (1 - Tdap) 02/06 Pneumoccocal Vaccine: 50+ (1 of 1 - PCV) 02/07/1992 Zoster vaccine (1 of 2) 02/07/1992 Advance Directive 1997 Bone Density Scan 2007 RSV Vaccine (1 - 1-dose 75+ series) 2017 Covid-19 Vaccine ( - 2023- season) 2024 Influenza (Flu) vaccine (1 o f 1 - Influenza standard series) 06/04/2024
--- OUTSIDE RECORDS SUMMARY | 2024-12-13 12:13 | XMS_ITS | Patient Health Record ---
Author Organization [facility] Address [address] [place] [address] Care Team Providers Care Slab Off Mill Tender Name Role Phone Art Vasquez Primary Care Provider Unavailab Rashaun Hinkle Unavailable [phone] Leonardo Thomason Unavailable [phone] Abran Joseph Unavailable [phone] Evelyn Bacon Unavailable Allergies No Known Allergies Reason For Referral Reason PT please eval and t reat s/p R. Medial UKA on 07/04/24 Diagnosis 1 Arthritis of both kn ees (M17.0) Referral Organization [facility] [place] Referring Provider First Name Abran Referring Provider Last Name Jake Referring Provider Speciality Orthopedic Surgery Referred Organization [facility] Referred Provider [facility] Referred Address [address], [place],[address], Referred Provider Specialty Physical The rapist General Notes Betsy Arzola 05/05 01:50:16 PM >sent Dariusz mercado Tiffany 10/09/2024 02:44:12 PM >completed per [facility] ov notes Referral Priority Routine Medications Medication SIG (Take, Route, Frequency, Duration) Notes Start Date End Date Status Tylenol 8 Hour 650 MG 2 tablets as neede d Orally every 8 hrs Active Gabapentin 300 MG TAKE 1 CAPSULE BY [facility] TWICE DAILY FOR 15 DAYS Oral for 15 Days Active amLODIPine Besy-Benazepril HCl 5-10 MG as directed Orally Active Aspirin 81 MG 1 tablet Orally bid for 28 days 07/04/2024 Not-Taking Social History Tobacco Use: Social History Observation Description Date Details (start date - stop date) Never Smoker NA - NA Sex Assigned At : Social History Observation Description Sex Assigned At Female Tobacco Screen Question Answer Notes Are you a: nonsmoker Tobacco Control (Standard) Question Answer Notes Tobacco use: Nonsmoker Section Notes: Pt does not drink or smoke, no recreational drugs Pt does not drink or smoke, no recreational drugs Pt does not drink or smoke, no recreational drugs Pt does not drink or smoke, no recreational drugs Pt does not drink or smoke, no recreational drugs Pt does not drink or smoke Pt does not drink or smoke Pt does not drink or smoke ,Pt does not drink or smoke, no recreational drugs Pt does not drink or smoke, no recreational drugs Pt does not drink or smoke, no recreational drugs Pt does not drink or smoke, no recreational drugs ,Pt does not drink or smoke, no recreational drugs ,Pt does not drink or smoke, no recreational drugs ,Pt does not drink or smoke, no recreational drugs Pt does not drink or smoke Pt does not drink or smoke, no recreational drugs Pt does not drink or smoke, no recreational drugs Pt does not drink or smoke, no recreational drugs Problems Problem Type SNOMED Code ICD Code Onset Dates Problem Status W/U Status Risk Notes Problem 385931774 Osteopenia determined by x-ray (M85.80) Active confirmed By report, fragility fracture distal right radius in the last 10 years requiring ORIF. Problem 523713343677510 Contracture, right knee (M24.561) Active confirmed Problem 86848031 Age-related osteoporosis without current pathological fracture (M81.0) Active confirmed Med By report, fragility fracture distal right radius in the last 10 years requiring ORIF. 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) Active confirmed Vital Signs Temperature 98.1 degrees Fahrenheit 10/06/2024 A.Ho cter, POWER MULE OPERATOR Oximetry 96 % 10/05/2024 K Cara POWER MULE OPERATOR Blood pressure diastolic 74 mm Hg 10/05/2024 K W hitcomb POWER MULE OPERATOR Height 61.5 in 10/06/2024 SELINA Bloom Blood pressure systolic 128 mm Hg 10/05/2024 Liz Stef zeng POWER MULE OPERATOR Weight 143.4 lbs 10/05/2024 Liz Cara POWER MULE OPERATOR BMI 26.65 kg/m2 10/05/2024 Liz Cara POWER MULE OPERATOR Procedures Procedure Date Ordered Date Performed Result Body Sit e UNI-COMPARTMENTAL KNEE ARTHROPLASTY 05/24/2024 07/04/2024 N/A Encounters Encounter Location Date Provider Diagnosis [facility] [address] [place] [address] 07/12/2024 Leonardo Dunham PM and R [address] [place] [address] 01/20/2024 Rashaun Dunham PM and R [address] [place] [address] 03/08/2024 Abran Joseph Age-related osteoporosis without current pathological fracture M81.0 [facility] [address] [place] [address] 04/10/2024 Abran Joseph [facility] [address] [place] [address] 05/24/2024 Abran Joseph Arthritis of both knees M17.0 ; Age-related osteoporosis without current pathological fracture M81.0 ; Abnormal finding of blood chemistry, unspecified R79.9 and Encounter for therapeutic drug level monitoring Z51.81 [facility] [address] [place] [address] 05/29/2024 Abran Joseph [facility] [address] [place] [address] 05/31/2024 Abran Jake [facility] [address] [place] [address] 06/28/2024 Leonardo Thomason [facility] [address] [place] [address] 07/04/2024 Leonardo Thomason [facility] [address] [place] [address] 07/05/2024 Abran Joseph [facility] [address] [place] [address] 07/15/2024 Leonardo Thomason Status post right partial knee replacement Z96.651 [facility] [address] [place] [address] 08/17/2024 Leonardo Thomason [facility] [address] [place] [address] 08/22/2024 Evelyn Thaosukhi [facility] [address] [place] [address] 08/30/2024 Leonardo Thomason [facility] [address] [place] [address] 09/13/2024 Abran Joseph [facility] [address] [place] [address] 10/05/2024 Rashaun Sales Right ankle swelling M25.471 ; Arthritis of left knee M17.12 ; Other chronic pain G89.29 ; Poor sleep Z72.820 ; History of partial knee replacement Z96.659 and Status post right partial knee replacement Z96.651 [facility] [address] [place] [address] 01/20/2024 Rashaun Sales Arthritis of both knees M17.0 ; Other chronic pain G89.29 ; Contracture, right knee M24.561 ; Knee effusion, right M25.461 and Poor sleep Z72.820 [facility] [address] [place] [address] 03/23/2024 Rashaun Sales Arthritis of both knees M17.0 ; Contracture, right knee M24.561 ; Other chronic pain G89.29 and Poor sleep Z72.820 [facility] [address] [place] [address] 03/08/2024 Rashaun Sales Arthritis of both knees M17.0 ; Other chronic pain G89.29 ; Contracture, right knee M24.561 and Poor sleep Z72.820 [facility] [address] [place] [address] 03/15/2024 Rashaun Sales Arthritis of both knees M17.0 ; Contracture, right knee M24.561 ; Other chronic pain G89.29 and Poor sleep Z72.820 [facility] [address] [place] [address] 10/06/2024 Leonardo Thomason Status post right partial knee replacement Z96.651 and Primary osteoarthritis of left knee M17.12 [facility] [address] [place] [address] 07/04/2024 Leonardo Thomason Status post right partial knee replacement Z96.651 and Primary localized osteoarthritis of right knee M17.11 [facility] [address] [place] [address] 07/04/2024 Abran Joseph Primary localized osteoarthritis of right knee M17.11 [facility] [address] [place] [address] 07/17/2024 Leonardo Thomason Status post right partial knee replacement Z96.651 and Orthopedic aftercare for joint replacement Z47.1 [facility] [address] [place] [address] 08/16/2024 Leonardo Thomason Status post right partial knee replacement Z96.651 and Orthopedic aftercare for joint replacement Z47.1 [facility] [address] [address] [facility] [address] [place] [address] 06/26/2024 Leonardo Thomason Localized osteoarthritis of knees, bilateral M17.0 ; Visit for pre-operative examination Z01.818 ; Age-related osteoporosis without current pathological fracture M81.0 ; Essential hypertension I10 and Stage 3a chronic kidney disease N18.31 Assessments Encounter Date Diagnosis (ICD Code) Assessment Notes Treatment Notes Treatment Clinical Notes Section Notes 01/20/2024 Arthritis of both knees (ICD-10 - M17.0) . . INDEPENDENT DATA REVIEW: - 01/06/23 MOA BL KNEE XRAY --> AP lateral and skyline view of both knees. Severe grade 4 osteoarthritic changes in medial compartments bilaterally with ibai-kj-wafl configuration, defects of femoral condyles articular surfaces bilaterally, lateral osteophyte formation on medial femoral and tibial condyles and subchondral sclerosis. Patellofemoral arthritis bilaterally. Relatively patent lateral compartments. 04-28-[address] GUZMAN reviewed. He discussed possible inj and did Rx Meloxicam 15mg - 1-8-24 MOA KNEE BILAT 1-2V --> *Diffuse osteopenia significant and suggestive of osteoporosis. *Moderate posterior vascular calcification noted. *No definite joint effusion. *Advanced multi compartmental osteoarthritis involving primarily the medial tibiofemoral articulations bilaterally, with probably moderate to severe patellofemoral arthrosis as well. Lateral joint spaces seem to be well maintained with valgus stress. All osteophytes are medial. . . PLAN OF CARE / RECOMMENDATIONS: Today's Date: 01/20/24 by SPH Last Seen: 11/26/23 by SPH . NICOLE KNEE: CHRONIC, WORSENING I met with Dr Joseph but I've decided not to do the surgery - R>L , exp 2022. Sharp at times, aches. Poor Sleep - h/o R knee scope 10+ yrs ago in [place] worked for a while - Limited walking, stairs, sleep - Options reviewed. She is looking to avoid SURG, wants non surg options - INJ reasonable. First for her , reviewed risks of procedure and benefits. - XR 01-06-23 --> ANA medial OA nicole with signif MFC collapse/ remodeling - 06-08-23 1:9 K R knee by SPH , pt requested and confirmed/ discussed/agreed upon . + response - MONOVISC 08-03-23 by SPH. NEG asp nicole. - EXAC approx 09/15/23 walking around [facility] with daughter. R>L symptoms. REquesting steroid rescue - 09-17-23 1:4 K by SPH nicole --> L did well , R not as improved - Considered VISCO vs PT/knee brace - Can consider teletype installer or lateral heel wedge for work hours, R knee - Contracture/ ROM loss is a risk but at her age/ desire to not do surgery we should try to maintain ROM best we can. PT can help - Anticipate need to alternate visco with steroid. She's pleased with POC - DISCUSSED surgical f/u at her request , she wanted to avoid surg but with family discussion they are more open to it so that she can remain active. WBW consult to discuss possibility of UKA vs TKA --> S/p SURG CONSULT: Pt reviewed and elected to cont non surg mgmt - TRIAL ZILRETTA R knee 11/30/23 by SPH fantastisabel for 6 weeks , hoping for another inj and to talk about surgery - REC EUFLEXXA series R knee after , then q3 mo alternate with Zilretta vs TKA/UKA - Handicap avery PW completed 01/20/24 - RTO after she returns from [place] in to sort out surgery or not . . LABS: - 08/05/23 Glu 84; Cr 0.8; LFTS normal; - 01/06/22 Hgb 13.0; Hct 40.8 . . PAIN: Rashaun Sales 01/20/2024 01:13:59 PM > - S/p Meloxicam, Motrin, Topicals - Tylenol 1000/IBU 400mg alternating - TYLENOL PM rec for sleep dyfx [pain related primarily] . . OTHER: - PT Perez at [facility], active - Familial longevity > 100 y/o - No etoh - Non smoker - No DM . . ---> A shared visit was performed in conjunction with Angelina Rain PA-C. The major substantive portion of the HPI and physical examination was reviewed and the total medical decision making was performed by Rashaun Sales MD constituting greater than 51% of the total time spent on this visit day. . A total time of 20 minutes was spent on this visit date reviewing other MSK conditions chart data, interaction and education with the patient, communicating with others involved, and completing chart documentation re: changes since last encounter. 03/08/2024 Other chronic pain (ICD-10 - G89.29) . . INDEPENDENT DATA REVIEW: - 01/06/23 MOA BL KNEE XRAY --> AP lateral and skyline view of both knees. Severe grade 4 osteoarthritic changes in medial compartments bilaterally with wcoo-kq-mtek configuration, defects of femoral condyles articular surfaces bilaterally, lateral osteophyte formation on medial femoral and tibial condyles and subchondral sclerosis. Patellofemoral arthritis bilaterally. Relatively patent lateral compartments. 04-28-[address] GUZMAN reviewed. He discussed possible inj and did Rx Meloxicam 15mg - 10-11-23 MOA KNEE BILAT 1-2V --> *Diffuse osteopenia significant and suggestive of osteoporosis. *Moderate posterior vascular calcification noted. *No definite joint effusion. *Advanced multi compartmental osteoarthritis involving primarily the medial tibiofemoral articulations bilaterally, with probably moderate to severe patellofemoral arthrosis as well. Lateral joint spaces seem to be well maintained with valgus stress. All osteophytes are medial. . . PLAN OF CARE / RECOMMENDATIONS: Today's Date: 03/08/24 by SPH Last Seen: 01/20/24 by SPH . NICOLE KNEE: CHRONIC, WORSENING Im pretty bad, Id like to do my shots then have the R one done after [place] - R>L , exp 2022. Sharp at times, aches. Poor Sleep - h/o R knee scope 10+ yrs ago in [place] worked for a while - Limited walking, stairs, sleep - Options reviewed. She is looking to avoid SURG, wants non surg options - INJ reasonable. First for her , reviewed risks of procedure and benefits. - XR 01-06-23 --> ANA medial OA nicole with signif MFC collapse/ remodeling - 06-08-23 1:9 K R knee by [facility] , pt requested and confirmed/ discussed/agreed upon . + response - MONOVISC 08-03-23 by [facility]. NEG asp nicole. - EXAC approx 09/15/23 walking around [facility] with daughter. R>L symptoms. REquesting steroid rescue - 09-17-23 1:4 K by SPH nicole --> L did well , R not as improved - Considered VISCO vs PT/knee brace - Can consider teletype installer or lateral heel wedge for work hours, R knee - Contracture/ ROM loss is a risk but at her age/ desire to not do surgery we should try to maintain ROM best we can. PT can help - Anticipate need to alternate visco with steroid. She's pleased with POC - DISCUSSED surgical f/u at her request , she wanted to avoid surg but with family discussion they are more open to it so that she can remain active. WBW consult to discuss possibility of UKA vs TKA --> S/p 10/2023 SURG CONSULT: Pt reviewed and elected to cont non surg mgmt - S/p ZILRETTA R knee 11/30/23 by [facility] fantastic for 6 weeks , hoping for another inj and to talk about surgery - EUFLEXXA series NICOLE knee at pt request --> 03/08/24, NICOLE EUF by SPH - Handicap avery PW completed 01/20/24 - TE to WBW re: R TKA [h/o consult in Oct] [Ideally surgery in Mid/Late April to May] after she returns from [place] in [place] - Rec she get Dental apt set up ahead of time . . LABS: Rashaun Sales Katt 03/08/2024 02:06:04 PM > - 08/05/23 Glu 84; Cr 0.8; LFTS normal; - 01/06/22 Hgb 13.0; Hct 40.8 . . PAIN: Rashaun Sales Katt 03/08/2024 02:06:00 PM > - S/p Meloxicam, Motrin, Topicals - Tylenol 1000/IBU 400mg alternating - TYLENOL PM rec for sleep dyfx [pain related primarily] . . OTHER: - PT Perez at [facility], active - Familial longevity > 100 y/o - No etoh - Non smoker - No DM . . In addition to procedures this day, a total time of 30 minutes was spent on this visit date reviewing other MSK conditions chart data, interaction and education with the patient, communicating with others involved, and completing all chart updates and documentation re: changes since last encounter. 03/08/2024 Arthritis of both knees (ICD-10 - M17.0) . . INDEPENDENT DATA REVIEW: - 01/06/23 MOA BL KNEE XRAY --> AP lateral and skyline view of both knees. Severe grade 4 osteoarthritic changes in medial compartments bilaterally with [id number]-gn-[id number] configuration, defects of femoral condyles articular surfaces bilaterally, lateral osteophyte formation on medial femoral and tibial condyles and subchondral sclerosis. Patellofemoral arthritis bilaterally. Relatively patent lateral compartments. 04-28-[address] GUZMAN reviewed. He discussed possible inj and did Rx Meloxicam 15mg - 10-11-23 MOA KNEE BILAT 1-2V --> *Diffuse osteopenia significant and suggestive of osteoporosis. *Moderate posterior vascular calcification noted. *No definite joint effusion. *Advanced multi compartmental osteoarthritis involving primarily the medial tibiofemoral articulations bilaterally, with probably moderate to severe patellofemoral arthrosis as well. Lateral joint spaces seem to be well maintained with valgus stress. All osteophytes are medial. . . PLAN OF CARE / RECOMMENDATIONS: Today's Date: 03/08/24 by SPH Last Seen: 01/20/24 by SPH . NICOLE KNEE: CHRONIC, WORSENING Im pretty bad, Id like to do my shots then have the R one done after [place] - R>L , exp 2022. Sharp at times, aches. Poor Sleep - h/o R knee scope 10+ yrs ago in [place] worked for a while - Limited walking, stairs, sleep - Options reviewed. She is looking to avoid SURG, wants non surg options - INJ reasonable. First for her , reviewed risks of procedure and benefits. - XR 01-06-23 --> ANA medial OA nicole with signif MFC collapse/ remodeling - 06-08-23 1:9 K R knee by SPH , pt requested and confirmed/ discussed/agreed upon . + response - MONOVISC 08-03-23 by SPH. NEG asp nicole. - EXAC approx 09/15/23 walking around [facility] with daughter. R>L symptoms. REquesting steroid rescue - 09-17-23 1:4 K by SPH nicole --> L did well , R not as improved - Considered VISCO vs PT/knee brace - Can consider teletype installer or lateral heel wedge for work hours, R knee - Contracture/ ROM loss is a risk but at her age/ desire to not do surgery we should try to maintain ROM best we can. PT can help - Anticipate need to alternate visco with steroid. She's pleased with POC - DISCUSSED surgical f/u at her request , she wanted to avoid surg but with family discussion they are more open to it so that she can remain active. WBW consult to discuss possibility of UKA vs TKA --> S/p 10/2023 SURG CONSULT: Pt reviewed and elected to cont non surg mgmt - S/p CALIXTO R knee 11/30/23 by SPH fantatim for 6 weeks , hoping for another inj and to talk about surgery - EUFLEXXA series NICOLE knee at pt request --> 03/08/24, NICOLE EUF by SPH - Handicap avery PW completed 01/20/24 - TE to WBW re: R TKA [h/o consult in Oct] [Ideally surgery in Mid/Late April to May] after she returns from [place] in [place] - Rec she get Dental apt set up ahead of time . . LABS: Rashaun Sales 03/08/2024 02:06:04 PM > - 08/05/23 Glu 84; Cr 0.8; LFTS normal; - 01/06/22 Hgb 13.0; Hct 40.8 . . PAIN: Rashaun Sales P 03/08/2024 02:06:00 PM > - S/p Meloxicam, Motrin, Topicals - Tylenol 1000/IBU 400mg alternating - TYLENOL PM rec for sleep dyfx [pain related primarily] . . OTHER: - PT Perez at [facility], active - Familial longevity > 100 y/o - No etoh - Non smoker - No DM . . In addition to procedures this day, a total time of 30 minutes was spent on this visit date reviewing other MSK conditions chart data, interaction and education with the patient, communicating with others involved, and completing all chart updates and documentation re: changes since last encounter. 03/08/2024 Age-related osteoporosis without current pathological fracture (ICD-10 - M81.0) 03/15/2024 Contracture, right knee (ICD-10 - M24.561) . . INDEPENDENT DATA REVIEW: - 01/06/23 MOA BL KNEE XRAY --> AP lateral and skyline view of both knees. Severe grade 4 osteoarthritic changes in medial compartments bilaterally with jdhh-df-[id number] configuration, defects of femoral condyles articular surfaces bilaterally, lateral osteophyte formation on medial femoral and tibial condyles and subchondral sclerosis. Patellofemoral arthritis bilaterally. Relatively patent lateral compartments. 04-28-[address] GUZMAN reviewed. He discussed possible inj and did Rx Meloxicam 15mg - 10-11-23 MOA KNEE BILAT 1-2V --> *Diffuse osteopenia significant and suggestive of osteoporosis. *Moderate posterior vascular calcification noted. *No definite joint effusion. *Advanced multi compartmental osteoarthritis involving primarily the medial tibiofemoral articulations bilaterally, with probably moderate to severe patellofemoral arthrosis as well. Lateral joint spaces seem to be well maintained with valgus stress. All osteophytes are medial. . . PLAN OF CARE / RECOMMENDATIONS: Today's Date: 03/15/24 by SPH Last Seen: 03/08/24 by SPH . NICOLE KNEE: CHRONIC, WORSENING Id like to continue my shots then have the R one done after [place] - R>L , exp 2022. Sharp at times, aches. Poor Sleep - h/o R knee scope 10+ yrs ago in [place] worked for a while - Limited walking, stairs, sleep - Options reviewed. She is looking to avoid SURG, wants non surg options - INJ reasonable. First for her , reviewed risks of procedure and benefits. - XR 01-06-23 --> ANA medial OA nicole with signif MFC collapse/ remodeling - 06-08-23 1:9 K R knee by SPH , pt requested and confirmed/ discussed/agreed upon . + response - MONOVISC 08-03-23 by SPH. NEG asp nicole. - EXAC approx 09/15/23 walking around [facility] with daughter. R>L symptoms. REquesting steroid rescue - 09-17-23 1:4 K by SPH nicole --> L did well , R not as improved - Considered VISCO vs PT/knee brace - Can consider teletype installer or lateral heel wedge for work hours, R knee - Contracture/ ROM loss is a risk but at her age/ desire to not do surgery we should try to maintain ROM best we can. PT can help - Anticipate need to alternate visco with steroid. She's pleased with POC - DISCUSSED surgical f/u at her request , she wanted to avoid surg but with family discussion they are more open to it so that she can remain active. WBW consult to discuss possibility of UKA vs TKA --> S/p 10/2023 SURG CONSULT: Pt reviewed and elected to cont non surg mgmt - S/p ZILRETTA R knee 11/30/23 by [facility] yanni for 6 weeks , hoping for another inj and to talk about surgery - EUFLEXXA series NICOLE knee at pt request --> 03/15/24, NICOLE EUF by SPH - Handicap avery PW completed 01/20/24 - TE to WBW re: R TKA [h/o consult in Oct] [Ideally surgery in Mid/Late April to May] after she returns from [place] - Rec she get Dental apt set up ahead of time - Care coordination for TKA as above . . LABS: Rashaun Sales P 03/15/2024 04:46:20 PM > - 08/05/23 Glu 84; Cr 0.8; LFTS normal; - 01/06/22 Hgb 13.0; Hct 40.8 . . PAIN: Rashaun Sales P 03/15/2024 04:46:22 PM > - S/p Meloxicam, Motrin, Topicals - Tylenol 1000/IBU 400mg alternating - TYLENOL PM rec for sleep dyfx [pain related primarily] . . OTHER: - PT Perez at [facility], active - Familial longevity > 100 y/o - No etoh - Non smoker - No DM . . In addition to procedures this day, a total time of 15 minutes was spent on this visit date reviewing surgical f/u plan, other MSK conditions chart data, interaction and education with the patient, communicating with others involved, and completing all chart updates and documentation re: changes since last encounter. . Proceeding through the Visco-supplement series uneventfully. Questions answered to satisfaction. No obvious side effects so elected to proceed with the next injection today. See procedure note attached. - Pt aware that maximal benefit may still be weeks away. - F/u scheduled and red flags discussed and agreed upon. - Additional discussion time separate from the procedure was spent reviewing joint arthritis impairments as they relate to activities, driving, sleep and quality of life. The natural history and prognosis was again reviewed as well as next step options should they proved necessary to entertain 03/15/2024 Arthritis of both knees (ICD-10 - M17.0) . . INDEPENDENT DATA REVIEW: - 01/06/23 MOA BL KNEE XRAY --> AP lateral and skyline view of both knees. Severe grade 4 osteoarthritic changes in medial compartments bilaterally with [id number] configuration, defects of femoral condyles articular surfaces bilaterally, lateral osteophyte formation on medial femoral and tibial condyles and subchondral sclerosis. Patellofemoral arthritis bilaterally. Relatively patent lateral compartments. 04-28-[address] GUZMAN reviewed. He discussed possible inj and did Rx Meloxicam 15mg - 10-11-23 MOA KNEE BILAT 1-2V --> *Diffuse osteopenia significant and suggestive of osteoporosis. *Moderate posterior vascular calcification noted. *No definite joint effusion. *Advanced multi compartmental osteoarthritis involving primarily the medial tibiofemoral articulations bilaterally, with probably moderate to severe patellofemoral arthrosis as well. Lateral joint spaces seem to be well maintained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 wedge for work hours, R knee - Contracture/ ROM loss is a risk but at her age/ desire to not do surgery we should try to maintain ROM best we can. PT can help - Anticipate need to alternate visco with steroid. She's pleased with POC - DISCUSSED surgical f/u at her request , she wanted to avoid surg but with family discussion they are more open to it so that she can remain active. WBW consult to discuss possibility of UKA vs TKA --> S/p 10/2023 SURG CONSULT: Pt reviewed and elected to cont non surg mgmt - S/p ZILRETTA R knee 11/30/23 by SPH yanni for 6 weeks , hoping for another inj and to talk about surgery - EUFLEXXA series NICOLE knee at pt request --> 03/15/24, NICOLE EUF by SPH - Handicap avery PW completed 01/20/24 - TE to WBW re: R TKA [h/o consult in Oct] [Ideally surgery in Mid/Late April to May] after she returns from [place] in [place] - Rec she get Dental apt set up ahead of time - Care coordination for TKA as above . . LABS: Rashaun Sales P 03/15/2024 04:46:20 PM > - 08/05/23 Glu 84; Cr 0.8; LFTS normal; - 01/06/22 Hgb 13.0; Hct 40.8 . . PAIN: Rashaun Sales P 03/15/2024 04:46:22 PM > - S/p Meloxicam, Motrin, Topicals - Tylenol 1000/IBU 400mg alternating - TYLENOL PM rec for sleep dyfx [pain related primarily] . . OTHER: - PT Perez at [facility], active - Familial longevity > 100 y/o - No etoh - Non smoker - No DM . . In addition to procedures this day, a total time of 15 minutes was spent on this visit date reviewing surgical f/u plan, other MSK conditions chart data, interaction and education with the patient, communicating with others involved, and completing all chart updates and documentation re: changes since last encounter. . Proceeding through the Visco-supplement series uneventfully. Questions answered to satisfaction. No obvious side effects so elected to proceed with the next injection today. See procedure note attached. - Pt aware that maximal benefit may still be weeks away. - F/u scheduled and red flags discussed and agreed upon. - Additional discussion time separate from the procedure was spent reviewing joint arthritis impairments as they relate to activities, driving, sleep and quality of life. The natural history and prognosis was again reviewed as well as next step options should they proved necessary to entertain 03/08/2024 Contracture, right knee (ICD-10 - M24.561) . . INDEPENDENT DATA REVIEW: - 01/06/23 MOA BL KNEE XRAY --> AP lateral and skyline view of both knees. Severe grade 4 osteoarthritic changes in medial compartments bilaterally with [id number]-[id number] configuration, defects of femoral condyles articular surfaces bilaterally, lateral osteophyte formation on medial femoral and tibial condyles and subchondral sclerosis. Patellofemoral arthritis bilaterally. Relatively patent lateral compartments. 04-28-[address] GUZMAN reviewed. He discussed possible inj and did Rx Meloxicam 15mg - 1-8-24 MOA KNEE BILAT 1-2V --> *Diffuse osteopenia significant and suggestive of osteoporosis. *Moderate posterior vascular calcification noted. *No definite joint effusion. *Advanced multi compartmental osteoarthritis involving primarily the medial tibiofemoral articulations bilaterally, with probably moderate to severe patellofemoral arthrosis as well. Lateral joint spaces seem to be well maintained with valgus stress. All osteophytes are medial. . . PLAN OF CARE / RECOMMENDATIONS: Today's Date: 03/08/24 by SPH Last Seen: 01/20/24 by SPH . NICOLE KNEE: CHRONIC, WORSENING Im pretty bad, Id like to do my shots then have the R one done after [place] - R>L , exp 2022. Sharp at times, aches. Poor Sleep - h/o R knee scope 10+ yrs ago in [place] worked for a while - Limited walking, stairs, sleep - Options reviewed. She is looking to avoid SURG, wants non surg options - INJ reasonable. First for her , reviewed risks of procedure and benefits. - XR 01-06-23 --> ANA medial OA nicole with signif MFC collapse/ remodeling - 06-08-23 1:9 K R knee by SPH , pt requested and confirmed/ discussed/agreed upon . + response - MONOVISC 08-03-23 by SPH. NEG asp nicole. - EXAC approx 09/15/23 walking around [facility] with daughter. R>L symptoms. REquesting steroid rescue - 09-17-23 1:4 K by SPH nicole --> L did well , R not as improved - Considered VISCO vs PT/knee brace - Can consider teletype installer or lateral heel wedge for work hours, R knee - Contracture/ ROM loss is a risk but at her age/ desire to not do surgery we should try to maintain ROM best we can. PT can help - Anticipate need to alternate visco with steroid. She's pleased with POC - DISCUSSED surgical f/u at her request , she wanted to avoid surg but with family discussion they are more open to it so that she can remain active. WBW consult to discuss possibility of UKA vs TKA --> S/p 10/2023 SURG CONSULT: Pt reviewed and elected to cont non surg mgmt - S/p ZILRETTA R knee 11/30/23 by SPH fantatim for 6 weeks , hoping for another inj and to talk about surgery - EUFLEXXA series NICOLE knee at pt request --> 03/08/24, NICOLE EUF by SPH - Handicap avery PW completed 01/20/24 - TE to WBW re: R TKA [h/o consult in Oct] [Ideally surgery in Mid/Late April to May] after she returns from [place] in [place] - Rec she get Dental apt set up ahead of time . . LABS: Rashaun Sales 03/08/2024 02:06:04 PM > - 08/05/23 Glu 84; Cr 0.8; LFTS normal; - 01/06/22 Hgb 13.0; Hct 40.8 . . PAIN: Rashaun Sales 03/08/2024 02:06:00 PM > - S/p Meloxicam, Motrin, Topicals - Tylenol 1000/IBU 400mg alternating - TYLENOL PM rec for sleep dyfx [pain related primarily] . . OTHER: - PT Perez at [facility], active - Familial longevity > 100 y/o - No etoh - Non smoker - No DM . . In addition to procedures this day, a total time of 30 minutes was spent on this visit date reviewing other MSK conditions chart data, interaction and education with the patient, communicating with others involved, and completing all chart updates and documentation re: changes since last encounter. 01/20/2024 Other chronic pain (ICD-10 - G89.29) . . INDEPENDENT DATA REVIEW: - 01/06/23 MOA BL KNEE XRAY --> AP lateral and skyline view of both knees. Severe grade 4 osteoarthritic changes in medial compartments bilaterally with vjmj-vz-[id number] configuration, defects of femoral condyles articular surfaces bilaterally, lateral osteophyte formation on medial femoral and tibial condyles and subchondral sclerosis. Patellofemoral arthritis bilaterally. Relatively patent lateral compartments. 04-28-[address] GUZMAN reviewed. He discussed possible inj and did Rx Meloxicam 15mg - 10-11-23 MOA KNEE BILAT 1-2V --> *Diffuse osteopenia significant and suggestive of osteoporosis. *Moderate posterior vascular calcification noted. *No definite joint effusion. *Advanced multi compartmental osteoarthritis involving primarily the medial tibiofemoral articulations bilaterally, with probably moderate to severe patellofemoral arthrosis as well. Lateral joint spaces seem to be well maintained with valgus stress. All osteophytes are medial. . . PLAN OF CARE / RECOMMENDATIONS: Today's Date: 01/20/24 by SPH Last Seen: 11/26/23 by SPH . NICOLE KNEE: CHRONIC, WORSENING I met with Dr Joseph but I've decided not to do the surgery - R>L , exp 2022. Sharp at times, aches. Poor Sleep - h/o R knee scope 10+ yrs ago in [place] worked for a while - Limited walking, stairs, sleep - Options reviewed. She is looking to avoid SURG, wants non surg options - INJ reasonable. First for her , reviewed risks of procedure and benefits. - XR 01-06-23 --> ANA medial OA nicole with signif MFC collapse/ remodeling - 06-08-23 1:9 K R knee by SPH , pt requested and confirmed/ discussed/agreed upon . + response - MONOVISC 08-03-23 by SPH. NEG asp nicole. - EXAC approx 09/15/23 walking around [facility] with daughter. R>L symptoms. REquesting steroid rescue - 09-17-23 1:4 K by SPH nicole --> L did well , R not as improved - Considered VISCO vs PT/knee brace - Can consider teletype installer or lateral heel wedge for work hours, R knee - Contracture/ ROM loss is a risk but at her age/ desire to not do surgery we should try to maintain ROM best we can. PT can help - Anticipate need to alternate visco with steroid. She's pleased with POC - DISCUSSED surgical f/u at her request , she wanted to avoid surg but with family discussion they are more open to it so that she can remain active. WBW consult to discuss possibility of UKA vs TKA --> S/p SURG CONSULT: Pt reviewed and elected to cont non surg mgmt - TRIAL ZILRETTA R knee 11/30/23 by [facility] yanni for 6 weeks , hoping for another inj and to talk about surgery - REC EUFLEXXA series R knee after , then q3 mo alternate with Zilretta vs TKA/UKA - Handicap avery PW completed 01/20/24 - RTO after she returns from [place] in to sort out surgery or not . . LABS: - 08/05/23 Glu 84; Cr 0.8; LFTS normal; - 01/06/22 Hgb 13.0; Hct 40.8 . . PAIN: Rashaun Sales 01/20/2024 01:13:59 PM > - S/p Meloxicam, Motrin, Topicals - Tylenol 1000/IBU 400mg alternating - TYLENOL PM rec for sleep dyfx [pain related primarily] . . OTHER: - PT Perez at [facility], active - Familial longevity > 100 y/o - No etoh - Non smoker - No DM . . ---> A shared visit was performed in conjunction with Angelina Rain PA-C. The major substantive portion of the HPI and physical examination was reviewed and the total medical decision making was performed by Rashaun Sales MD constituting greater than 51% of the total time spent on this visit day. . A total time of 20 minutes was spent on this visit date reviewing other MSK conditions chart data, interaction and education with the patient, communicating with others involved, and completing chart documentation re: changes since last encounter. 01/20/2024 Contracture, right knee (ICD-10 - M24.561) . . INDEPENDENT DATA REVIEW: - 01/06/23 MOA BL KNEE XRAY --> AP lateral and skyline view of both knees. Severe grade 4 osteoarthritic changes in medial compartments bilaterally with [id number]-[id number] configuration, defects of femoral condyles articular surfaces bilaterally, lateral osteophyte formation on medial femoral and tibial condyles and subchondral sclerosis. Patellofemoral arthritis bilaterally. Relatively patent lateral compartments. 04-28-[address] GUZMAN reviewed. He discussed possible inj and did Rx Meloxicam 15mg - 10-11-23 MOA KNEE BILAT 1-2V --> *Diffuse osteopenia significant and suggestive of osteoporosis. *Moderate posterior vascular calcification noted. *No definite joint effusion. *Advanced multi compartmental osteoarthritis involving primarily the medial tibiofemoral articulations bilaterally, with probably moderate to severe patellofemoral arthrosis as well. Lateral joint spaces seem to be well maintained with valgus stress. All osteophytes are medial. . . PLAN OF CARE / RECOMMENDATIONS: Today's Date: 01/20/24 by SPH Last Seen: 11/26/23 by BONY . NICOLE KNEE: CHRONIC, WORSENING I met with Dr Joseph but I've decided not to do the surgery - R>L , exp 2022. Sharp at times, aches. Poor Sleep - h/o R knee scope 10+ yrs ago in [place] worked for a while - Limited walking, stairs, sleep - Options reviewed. She is looking to avoid SURG, wants non surg options - INJ reasonable. First for her , reviewed risks of procedure and benefits. - XR 01-06-23 --> ANA medial OA nicole with signif MFC collapse/ remodeling - 06-08-23 1:9 K R knee by SPH , pt requested and confirmed/ discussed/agreed upon . + response - MONOVISC 08-03-23 by SPH. NEG asp nicole. - EXAC approx 09/15/23 walking around [facility] with daughter. R>L symptoms. REquesting steroid rescue - 09-17-23 1:4 K by SPH nicole --> L did well , R not as improved - Considered VISCO vs PT/knee brace - Can consider teletype installer or lateral heel wedge for work hours, R knee - Contracture/ ROM loss is a risk but at her age/ desire to not do surgery we should try to maintain ROM best we can. PT can help - Anticipate need to alternate visco with steroid. She's pleased with POC - DISCUSSED surgical f/u at her request , she wanted to avoid surg but with family discussion they are more open to it so that she can remain active. WBW consult to discuss possibility of UKA vs TKA --> S/p SURG CONSULT: Pt reviewed and elected to cont non surg mgmt - TRIAL ZILRETTA R knee 11/30/23 by SPH yanni for 6 weeks , hoping for another inj and to talk about surgery - REC EUFLEXXA series R knee after , then q3 mo alternate with Zilretta vs TKA/UKA - Handicap avery PW completed 01/20/24 - RTO after she returns from [place] in to sort out surgery or not . . LABS: - 08/05/23 Glu 84; Cr 0.8; LFTS normal; - 01/06/22 Hgb 13.0; Hct 40.8 . . PAIN: Rashaun Sales 01/20/2024 01:13:59 PM > - S/p Meloxicam, Motrin, Topicals - Tylenol 1000/IBU 400mg alternating - TYLENOL PM rec for sleep dyfx [pain related primarily] . . OTHER: - PT Ana at [facility], active - Familial longevity > 100 y/o - No etoh - Non smoker - No DM . . ---> A shared visit was performed in conjunction with Angelina Rain PA-C. The major substantive portion of the HPI and physical examination was reviewed and the total medical decision making was performed by Rashaun Sales MD constituting greater than 51% of the total time spent on this visit day. . A total time of 20 minutes was spent on this visit date reviewing other MSK conditions chart data, interaction and education with the patient, communicating with others involved, and completing chart documentation re: changes since last encounter. 03/08/2024 Poor sleep (ICD-10 - Z72.820) . . INDEPENDENT DATA REVIEW: - 01/06/23 MOA BL KNEE XRAY --> AP lateral and skyline view of both knees. Severe grade 4 osteoarthritic changes in medial compartments bilaterally with zcuz-ku-hmxh configuration, defects of femoral condyles articular surfaces bilaterally, lateral osteophyte formation on medial femoral and tibial condyles and subchondral sclerosis. Patellofemoral arthritis bilaterally. Relatively patent lateral compartments. 04-28-[address] GUZMAN reviewed. He discussed possible inj and did Rx Meloxicam 15mg - 10-11-23 MOA KNEE BILAT 1-2V --> *Diffuse osteopenia significant and suggestive of osteoporosis. *Moderate posterior vascular calcification noted. *No definite joint effusion. *Advanced multi compartmental osteoarthritis involving primarily the medial tibiofemoral articulations bilaterally, with probably moderate to severe patellofemoral arthrosis as well. Lateral joint spaces seem to be well maintained with valgus stress. All osteophytes are medial. . . PLAN OF CARE / RECOMMENDATIONS: Today's Date: 03/08/24 by SPH Last Seen: 01/20/24 by SPH . NICOLE KNEE: CHRONIC, WORSENING Im pretty bad, Id like to do my shots then have the R one done after [place] - R>L , exp 2022. Sharp at times, aches. Poor Sleep - h/o R knee scope 10+ yrs ago in [place] worked [place] a while - Limited walking, stairs, sleep - Options reviewed. She is looking to avoid SURG, wants non surg options - INJ reasonable. First for her , reviewed risks of procedure and benefits. - XR 01-06-23 --> ANA medial OA nicole with signif MFC collapse/ remodeling - 06-08-23 1:9 K R knee by SPH , pt requested and confirmed/ discussed/agreed upon . + response - MONOVISC 08-03-23 by SPH. NEG asp nicole. - EXAC approx 09/15/23 walking around [facility] with daughter. R>L symptoms. REquesting steroid rescue - 09-17-23 1:4 K by SPH nicole --> L did well , R not as improved - Considered VISCO vs PT/knee brace - Can consider teletype installer or lateral heel wedge for work hours, R knee - Contracture/ ROM loss is a risk but at her age/ desire to not do surgery we should try to maintain ROM best we can. PT can help - Anticipate need to alternate visco with steroid. She's pleased with POC - DISCUSSED surgical f/u at her request , she wanted to avoid surg but with family discussion they are more open to it so that she can remain active. WBW consult to discuss possibility of UKA vs TKA --> S/p 10/2023 SURG CONSULT: Pt reviewed and elected to cont non surg mgmt - S/p ZILRETTA R knee 11/30/23 by [facility] denaisabel for 6 weeks , hoping for another inj and to talk about surgery - EUFLEXXA series NICOLE knee at pt request --> 03/08/24, NICOLE EUF by SPH - Handicap avery PW completed 01/20/24 - TE to WBW re: R TKA [h/o consult in Oct] [Ideally surgery in Mid/Late April to May] after she returns from [place] in [place] - Rec she get Dental apt set up ahead of time . . LABS: Rashaun Sales 03/08/2024 02:06:04 PM > - 08/05/23 Glu 84; Cr 0.8; LFTS normal; - 01/06/22 Hgb 13.0; Hct 40.8 . . PAIN: Rashaun Sales 03/08/2024 02:06:00 PM > - S/p Meloxicam, Motrin, Topicals - Tylenol 1000/IBU 400mg alternating - TYLENOL PM rec for sleep dyfx [pain related primarily] . . OTHER: - PT Perez at [facility], active - Familial longevity > 100 y/o - No etoh - Non smoker - No DM . . In addition to procedures this day, a total time of 30 minutes was spent on this visit date reviewing other MSK conditions chart data, interaction and education with the patient, communicating with others involved, and completing all chart updates and documentation re: changes since last encounter. 03/15/2024 Poor sleep (ICD-10 - Z72.820) . . INDEPENDENT DATA REVIEW: - 01/06/23 MOA BL KNEE XRAY --> AP lateral and skyline view of both knees. Severe grade 4 osteoarthritic changes in medial compartments bilaterally with zvie-zm-hnar configuration, defects of femoral condyles articular surfaces bilaterally, lateral osteophyte formation on medial femoral and tibial condyles and subchondral sclerosis. Patellofemoral arthritis bilaterally. Relatively patent lateral compartments. 04-28-[address] GUZMAN reviewed. He discussed possible inj and did Rx Meloxicam 15mg - 10-11-23 MOA KNEE BILAT 1-2V --> *Diffuse osteopenia significant and suggestive of osteoporosis. *Moderate posterior vascular calcification noted. *No definite joint effusion. *Advanced multi compartmental osteoarthritis involving primarily the medial tibiofemoral articulations bilaterally, with probably moderate to severe patellofemoral arthrosis as well. Lateral joint spaces seem to be well maintained with valgus stress. All osteophytes are medial. . . PLAN OF CARE / RECOMMENDATIONS: Today's Date: 03/15/24 by SPH Last Seen: 03/08/24 by SPH . NICOLE KNEE: CHRONIC, WORSENING Id like to continue my shots then have the R one done after [place] - R>L , exp 2022. Sharp at times, aches. Poor Sleep - h/o R knee scope 10+ yrs ago in [place] worked [place] a while - Limited walking, stairs, sleep - Options reviewed. She is looking to avoid SURG, wants non surg options - INJ reasonable. First for her , reviewed risks of procedure and benefits. - XR 01-06-23 --> ANA medial OA nicole with signif MFC collapse/ remodeling - 06-08-23 1:9 K R knee by SPH , pt requested and confirmed/ discussed/agreed upon . + response - MONOVISC 08-03-23 by SPH. NEG asp nicole. - EXAC approx 09/15/23 walking around [facility] with daughter. R>L symptoms. REquesting steroid rescue - 09-17-23 1:4 K by SPH nicole --> L did well , R not as improved - Considered VISCO vs PT/knee brace - Can consider teletype installer or lateral heel wedge for work hours, R knee - Contracture/ ROM loss is a risk but at her age/ desire to not do surgery we should try to maintain ROM best we can. PT can help - Anticipate need to alternate visco with steroid. She's pleased with POC - DISCUSSED surgical f/u at her request , she wanted to avoid surg but with family discussion they are more open to it so that she can remain active. WBW consult to discuss possibility of UKA vs TKA --> S/p 10/2023 SURG CONSULT: Pt reviewed and elected to cont non surg mgmt - S/p CALIXTO R knee 11/30/23 by SPH yanni for 6 weeks , hoping for another inj and to talk about surgery - EUFLEXXA series NICOLE knee at pt request --> 03/15/24, NICOLE EUF by SPH - Handwes varela PW completed 01/20/24 - TE to WBW re: R TKA [h/o consult in Oct] [Ideally surgery in Mid/Late April to May] after she returns from [place] in [place] - Rec she get Dental apt set up ahead of time - Care coordination for TKA as above . . LABS: Rashaun Sales P 03/15/2024 04:46:20 PM > - 08/05/23 Glu 84; Cr 0.8; LFTS normal; - 01/06/22 Hgb 13.0; Hct 40.8 . . PAIN: SalesCalebn P 03/15/2024 04:46:22 PM > - S/p Meloxicam, Motrin, Topicals - Tylenol 1000/IBU 400mg alternating - TYLENOL PM rec for sleep dyfx [pain related primarily] . . OTHER: - PT Perez at [facility], active - Familial longevity > 100 y/o - No etoh - Non smoker - No DM . . In addition to procedures this day, a total time of 15 minutes was spent on this visit date reviewing surgical f/u plan, other MSK conditions chart data, interaction and education with the patient, communicating with others involved, and completing all chart updates and documentation re: changes since last encounter. . Proceeding through the Visco-supplement series uneventfully. Questions answered to satisfaction. No obvious side effects so elected to proceed with the next injection today. See procedure note attached. - Pt aware that maximal benefit may still be weeks away. - F/u scheduled and red flags discussed and agreed upon. - Additional discussion time separate from the procedure was spent reviewing joint arthritis impairments as they relate to activities, driving, sleep and quality of life. The natural history and prognosis was again reviewed as well as next step options should they proved necessary to entertain 03/23/2024 Poor sleep (ICD-10 - Z72.820) . . INDEPENDENT DATA REVIEW: - 01/06/23 MOA BL KNEE XRAY --> AP lateral and skyline view of both knees. Severe grade 4 osteoarthritic changes in medial compartments bilaterally with [id number]-[id number] configuration, defects of femoral condyles articular surfaces bilaterally, lateral osteophyte formation on medial femoral and tibial condyles and subchondral sclerosis. Patellofemoral arthritis bilaterally. Relatively patent lateral compartments. 04-28-[address] GUZMAN reviewed. He discussed possible inj and did Rx Meloxicam 15mg - 8-24 MOA KNEE BILAT 1-2V --> *Diffuse osteopenia significant and suggestive of osteoporosis. *Moderate posterior vascular calcification noted. *No definite joint effusion. *Advanced multi compartmental osteoarthritis involving primarily the medial tibiofemoral articulations bilaterally, with probably moderate to severe patellofemoral arthrosis as well. Lateral joint spaces seem to be well maintained with valgus stress. All osteophytes are medial. . . PLAN OF CARE / RECOMMENDATIONS: Today's Date: 03/23/24 by SPH Last Seen: 03/15/24 by SPH . NICOLE KNEE: CHRONIC, WORSENING Id like to continue my shots then have the R one done after FL. I really need a steroid shot on the R - R>L , exp 2022. Sharp at times, aches. Poor Sleep - h/o R knee scope 10+ yrs ago in [place] worked for a while - Limited walking, stairs, sleep - Options reviewed. She is looking to avoid SURG, wants non surg options - INJ reasonable. First for her , reviewed risks of procedure and benefits. - XR 01-06-23 --> ANA medial OA nicole with signif MFC collapse/ remodeling - 06-08-23 1:9 K R knee by SPH , pt requested and confirmed/ discussed/agreed upon . + response - MONOVISC 08-03-23 by SPH. NEG asp nicole. - EXAC approx 09/15/23 walking around [facility] with daughter. R>L symptoms. REquesting steroid rescue - 09-17-23 1:4 K by SPH nicole --> L did well , R not as improved - Considered VISCO vs PT/knee brace - Can consider teletype installer or lateral heel wedge for work hours, R knee - Contracture/ ROM loss is a risk but at her age/ desire to not do surgery we should try to maintain ROM best we can. PT can help - Anticipate need to alternate visco with steroid. She's pleased with POC - DISCUSSED surgical f/u at her request , she wanted to avoid surg but with family discussion they are more open to it so that she can remain active. WBW consult to discuss possibility of UKA vs TKA --> S/p 10/2023 SURG CONSULT: Pt reviewed and elected to cont non surg mgmt - S/p ZILRETTA R knee 11/30/23 by SPH fantastic for 6 weeks , hoping for another inj and to talk about surgery - EUFLEXXA series NICOLE knee at pt request --> 03/23/24, L EUF by SPH finished series --> pt req 03/23/24 Steroid inJ R KNEE due to high pain level. 1:4 C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
--- OUTSIDE RECORDS SUMMARY | 2024-12-13 12:14 | XMS_ITS ---
Author Organization [facility] Health Services Address [address] [place] [address] Care Team Providers Care Supply Manager Name Role Phone Art Vasquez Primary Care Provider Unavailab Rashaun Hinkle Unavailable [phone] REASON FOR VISIT L knee pain pain possible Cortisone Injection Social History Sex Assigned At : Social History Observation Description Sex Assigned At Female Encounters [facility]counter Location Date [facility] [address] [place] [address] [place] [address] 11/02/2024 Rashaun Sales Plan Of Treatment Next Appt Details Provider Name:Leonardo peres, 01/01/2025 01:45:00 PM, [address], [address], [address], Provider Name:Rashaun rogers, 01/09/2025 01:20:00 PM, [address], [address], [address], Progress Notes * Lyubov DINHDOB:03/1940 (84 yo F)Acc No.[id number]:11/02/2024 UNLOCKED PROGRESS NOTE Progress Note Patient:?Lyubov DINH Provider:?Rashaun Sales MD :1940???Age:84 Y???Sex:Female D ate:11/02/2024 Address:[address] [place] [address], [place], [id number] Pcp:LAWANDA Pires Subjective: * Chief Complaints: * ???1. L knee pain pain possi ble Cortisone Injection. * Medical History:? Objective: * Vitals:? Assessment: Plan: * Treatment: * * The named appointment provid er may or may not be the originator of this progress note, and it is not deemed complete until electronically signed by the appointment provider. Sign off status: Pending * Provider:?Rashaun Sales MD Date:? 11/02/2024 Generated for Cris khan/Prema/Eshaitting on:?12/13/2024 12:13 PM EDT
--- OUTSIDE RECORDS SUMMARY | 2024-12-13 12:14 | XMS_ITS ---
Author Organization [facility] Health Services Address [address] [place] [address] Care Team Providers Care Tinter Photograph Name Role Phone Art Vasquez Primary Care Provider Unavailab Leonardo Sandy Unavailable [phone] REASON FOR VISIT 13 weeks S/P Right Medial UKA-DOS 07/04/24- XR Prior- WBW Medications Medication SIG (Take, Route, Frequency, Duration) [...] Observation Description Sex Assigned At Female Tobacco Control (Standard) Question Answer Notes Tobacco use: Nonsmoker Section Notes: Pt does not drink or smoke, no recreational drugs Vital Signs Temperature 98.1 degrees Fahrenheit 10/06/19 25 Height 61.5 in 10/06/2024 SELINA Bloom Encounters Encounter Location Date Provider Diagnosis [facility] [address] [place] [address] 10/06/2024 Leonardo Thomason Status post right partial knee replacement Z96.651 and Primary osteoarthritis of left knee M17.12 Assessments Encounter Date Diagnosis (ICD Code) Assessment Notes Treatment Notes Treatment Clinical Notes Section Notes 10/06/2024 Status post right partial knee replacement (ICD-10 - Z96.651) DATA: s/p R knee medial UKA 07/04/2024. -- Patelloplasty, cemented right knee medial [place] UKA. Implants ([employer]):Femur small; Tibia C; [...] biased -- s/p R knee Cemented medial [place] unicompartmental knee arthroplasty surgery DOS: 07/04/2024 (WBW). [...] knee replacements in the near future. 10/06/2024 Primary osteoarthritis of left knee (ICD-10 - M17.12) DATA: s/p R knee medial UKA 07/04/2024. -- Patelloplasty, cemented right knee medial [place] UKA. Implants ([employer]):Femur small; Tibia C; [...] biased -- s/p R knee Cemented medial [place] unicompartmental knee arthroplasty surgery DOS: 07/04/2024 ([facility]W). [...] partial knee replacements in the near future. Plan Of Treatment Next Appt Details Follow Up: 3 Months, Reason: Provider Name:Leonardo peres, 01/01/2025 01:45:00 PM, [address] [place] [address], [address], [address], Provider Name:Rashaun rogers, 01/09/2025 01:20:00 PM, [address] [place] [address], [address] [place] [address], [address], Progress Notes * Lyubov DINHDOB:03/1940 (84 yo F)Acc No.[id number]:10/06/2024 Progress Note Patient:?Lyubov DINH Provider:?Leonardo Thomason PA-C :1940???Age:84 Y???Sex:Female D ate:10/06/2024 Address:[address] [place], [place] [id number] Pcp:LAWANDA Pires Subjective: * Chief Complaints: * ???13 weeks S/P Right Medial UKA-DOS 07/04/24- XR Prior- WBW * HPI: ???Orthopedic evaluation:?FOLLOW UP?Patient is 13 weeks s/p R. Medial UKA- DOS 07/04/24.? Pt states that she is doing well, She has completed?formal Pt. Pt states the knee is great, I think I'll need to start planning for the other knee Location: BL Knees R>L Onset: chronic Nature: achey Aggravated by: walking, sleeping, stairs relieved by ibu, tylenol, ice.?ORTHO HISTORY?:.? * ROS:?ENT:?Patient denies?recent headaches, recent visual change.?Respiratory:?Patient denies?unexplained cough or dyspnea.?Cardiovascular:?Patient denies?dizziness.?Gastrointestinal:?Patient denies?abdominal pain or signs of bleeding.?Genitourinary:?Patient denies?difficulty urinating.?Hematology:?Patient denies?excessive bruising or bleeding problems.?Musculoskeletal:?Patient denies?generalized muscle pain.?Neurologic:?Patient denies?balance difficulty, tremor.?Psychiatric:?Patient denies?a persistently depressed mood.? * Medical History:? * Surgical History:?hysterecto my bladder surgery R knee medial UKA (Partial knee replacement) 07/04/2024 * Hospitalization/Major Diagno stic Procedure:?No Hospitalization History. * Family History:?Father: dece ased.?Mother: .? * Social History:?Brief Social History:?Occupation: [employer]. ?Lives with: . ???Tobacco Use:?Tobacco Control (Standard)?Tobacco use:?Nonsmoker ???Pt does not drink or smoke, no recreational drugs. * Medications:?TakingamLODIPin e Besy-Benazepril HCl 5-10 MG Capsule as directed Orally Gabapentin 300 MG Capsule TAKE 1 CAPSULE BY MOUTH TWICE DAILY FOR 15 DAYS Oral Tylenol 8 Hour(Acetaminophen ER) 650 MG Tablet Extended Release 2 tablets as needed Orally every 8 hrs Taking amLODIPine Besy-Benazepril HCl 5-10 MG Capsule as directed Orally Taking Gabapentin 300 MG Capsule TAKE 1 CAPSULE BY MOUTH TWICE DAILY FOR 15 DAYS Oral Taking Tylenol 8 Hour(Acetaminophen ER) 650 MG Tablet Extended Release 2 tablets as needed Orally every 8 hrs Not-TakingAspirin 81 MG Tablet Delayed Release 1 tablet Orally bid Medication List reviewed and reconciled with the patientNot- Taking Aspirin 81 MG Tablet Delayed Release 1 tablet Orally bid Medication List reviewed and reconciled with the patient * Allergies:?no[Allergies Veri fied] Objective: * Vitals:?Temp:98.1, Ht: 61.5 in, Pain scale: 2 1-10. SELINA Bloom. * Examination: ???General Examination: ?GENERAL APPEARANCE:?Healthy appearing, well nourished, Vigorous and youthful for age.?DISTRESS LEVEL:?appears in NAD, comfortable.?GAIT:?,non antalgic,ambulating with cane.?COGNITION:?good memory and durable medical equipment repairer.?MOOD:? appropriate mood, full affect.?PSYCHIATRIC:?cooperative and pleasant with good judgement.?SKIN:?Surgical wound right anterior knee is clean and dry and well-approximated.? It is healing nicely without evidence of infection.?LYMPH NODES:?Mild lymphedema right lower extremity.?LUNGS:? no audible wheezing or difficulty breathing.?PERIPHERAL PULSES:?skin warm to touch, capillary refill intact.?MOTOR FUNCTION:?intact BLE/BUE without focal deficit.?SENSATION:?grossly intact.?MUSCULOSKELETAL:?Right lower extremity exam: Right knee surgical wound as above.? Mild soft tissue swelling and right knee effusion is noted;?No significant tenderness to palpation.? The patient does have slight nonpitting edema of the right lower leg.? Active range of motion right knee is 5 to 120 degrees knee flexion (measured to 120 degrees knee flexion in physical therapy) no calf tenderness;?Degenerative changes of the left knee are noted with varus stance and tenderness to palpation along the medial joint line.? Assessment: * Assessment: 1.?Status post right partial knee replacement - Z96.651 (Primary)???2.?Primary osteoarthritis of left knee - M17.12??? DATA: s/p R knee medial UKA 07/04/2024. -- Patelloplasty, cemented right knee medial [place] UKA. Implants ([employer]):Femur small; Tibia C; [...] biased -- s/p R knee Cemented medial [place] unicompartmental knee arthroplasty surgery DOS: 07/04/2024 ([facility]). [...] completed physical therapy. The surgical wound is well- healed and the patient continues to demonstrate excellent [...] partial knee replacements in the near future. Plan: * Treatment: * Procedure Codes:? * Follow Up:?3 Months * * Sign off status: Completed true * Provider:?Leonardo Thomason PA-C Date:? 10/06/2024 Generated for Cris khan/Prema/Bita on:?12/13/2024 12:13 PM EDT History and Physical Notes * HPI (History of Present Illness) Category Sub-Category Detail Notes Category Not es Orthopedic evaluation ORTHO HISTORY : FOLLOW UP Patient is 13 weeks s/p R. Medial UKA- DOS 07/04/24. Pt states that she is doing well, She has completed formal Pt. Pt states the knee is great, I think I'll need to start planning for the other knee Location: BL Knees R>L Onset: chronic Nature: achey Aggravated by: walking, sleeping, stairs relieved by ibu, tylenol, ice Examination Category Sub-Category Detail Notes Category Not es General Examination GENERAL APPEARANCE: Healthy appearing, well nourished, Vigorous and youthful for age COGNITION: good memory and medi zachariah historian MOOD: appropriate mood, fu ll affect GAIT: , non antalgic, ambu lating with cane SENSATION: grossly intact MOTOR FUNCTION: intact BLE/BUE witho ut focal deficit LYMPH NODES: Mild lymphedema righ t lower extremity LUNGS: no audible wheezing or difficulty breathing SKIN: Surgical wound right anterior knee is clean and dry and well-approximated. It is healing nicely without evidence of infection PERIPHERAL PULSES: skin warm to touch, capillary refill intact PSYCHIATRIC: cooperative and plea frank with good judgement MUSCULOSKELETAL: Right lower extremit y exam: Right knee surgical wound as above. Mild soft tissue swelling and right knee effusion is noted; No significant tenderness to palpation. The patient does have slight nonpitting edema of the right lower leg. Active range of motion right knee is 5 to 120 degrees knee flexion (measured to 120 degrees knee flexion in physical therapy) no calf tenderness; Degenerative changes of the left knee are noted with varus stance and tenderness to palpation along the medial joint line DISTRESS LEVEL: appears in NAD, comf ortable
== END 2024-12-13 11:50 | disposition home or self-care (01) ==
LOC: HO.HMCH 10:35
PROVIDERS: PCP Physician Assistant; Visit Provider Physician Assistant
DX: I10 Essential (primary) hypertension (principal); F41.1 Generalized anxiety disorder; E78.2 Mixed hyperlipidemia; H35.3220 Exudative age-related macular degeneration, left eye, stage unspecified

== ENCOUNTER → 2024-12-13 10:34 | Outpatient (BNVA) | payer MEDICARE, OTHER, SELFPAY | PROVIDERS: PCP Physician Assistant; Visit Provider Physician Assistant | DX: I10 Essential (primary) hypertension (principal); F41.1 Generalized anxiety disorder; E78.2 Mixed hyperlipidemia; H35.3220 Exudative age-related macular degeneration, left eye, stage unspecified | CPT/HCPCS: 96127; 99212 ==

== ENCOUNTER 2025-05-03 13:28 | Outpatient (AMB) | payer MEDICARE, OTHER, SELFPAY ==
--- NOTE | 2025-05-03 13:37 | MHC.PC.OV ---
Vital Signs 05/03/25 13:40 Height 5 ft 1 in Weight 147 lb BMI 27.8 BP 130/62 Blood Pressure Location Lt brachial Position Sitting Pulse 86 Temp 97.8 F Temp Source Temporal Artery Scan Oxygen Delivery Method Room Air Oxygen Flow Rate 97 Intake Visit Reasons: [facility] left total knee 05/29 Director Global Strategic Publisher Sales Required: No Accompanied by: Self / Same As Patient Allergies No Known Allergies Allergy (Verified 05/03/25 13:39) Medication List - Last Reconciled 05/03/25 by Michela Yadav PA-C alprazolam 0.25 mg PO BID 4 days amlodipine 10 mg PO DAILY cholecalciferol (vitamin D3) 25 mcg PO DAILY gabapentin 300 mg PO BID 30 days meloxicam 15 mg PO DAILY 30 days Tobacco use date assessed: 05/03/25 Fall risk assessment: No Falls in past year Last assessed Fall Risk: 05/03/25 Dental Screening Dental Screen Date: 05/03/25 Did you have a dental visit in the last 12 months?: Yes Did you have a dental problem in the last 6 months where you did not have access to dental care?: No Was dental information given to patient?: Patient has dentist HPI [facility] Orthopedic left total knee 05/29 HPI Details 85-year-old female with past medical history of hypertension, hyperlipidemia, generalized anxiety disorder, macular degeneration last seen by RUBI coming in for preoperative visit. Patient is scheduled to have left knee replacement 05/29/2025 through [facility]. No history of NC, CVA, CHF or diabetes mellitus. Patient has had anesthesia in the past with no issue. She has no acute concerns today. She had the partial knee replacement on the R side last year. Hypertension: 130/62 blood pressure is well controlled at this time on amlodipine 10 mg. [facility] Medical History Visit for suture removal Encounter for Medicare annual wellness exam Generalized anxiety disorder Exposure to COVID-19 virus HTN (hypertension) Surgical History S/P right knee arthroscopy History of cataract surgery History of hysterectomy Family History Mother No problems noted. Father No problems noted. Social History Housing: House Alcohol intake: never Patient Tobacco Use Status: Never used Tobacco e-Cigarette/Vaping Use: Never Used Second Hand Smoke Exposure: No service: No Current occupational status: retired Cognitive needs: No Hearing needs: Yes Vision needs: Yes Questionnaire Thrive Questionnaire Date Thrive assessed: 05/03/25 AAYUSH-7 AMB Questionnaire AAYUSH-7 Date AAYUSH - 7 assessed: 05/03/25 Source: Developed by Drs. Fadi Millan, Za Brooks, Arnoldo Mendez and colleagues, with an educational sophie from [employer]. Review of Systems Const Denies body aches, Denies fatigue, Denies fever(s), Denies frequent falls, Denies headache(s) and Denies weakness Eyes Reports no additional complaints and Denies change in vision ENT Denies dysphagia, Denies dizziness, Denies facial pain, Denies headache(s), Denies nasal congestion and Denies odynophagia Card Denies chest pain, Denies syncope, Denies irregular heart rhythm, Denies leg edema, Denies lightheadedness and Denies dyspnea Resp Denies cough and Denies dyspnea GI Denies abdominal pain, Denies constipation, Denies dysphagia, Denies dyspepsia, Denies diarrhea, Denies nausea, Denies odynophagia and Denies vomiting Denies urinary frequency, Denies dysuria, Denies urinary hesitancy and Denies urinary urgency Musc Denies back pain and Denies myalgias Skin/Breast Reports system reviewed and no additional complaints, except as documented Neuro Denies dizziness, Denies syncope, Denies frequent falls, Denies headache(s) and Denies weakness Psych Reports no additional complaints Endo Denies fatigue Physical exam (Primary Care) Tobacco/Smoking Status: Tobacco use Status Tobacco use date assessed 12/13/24 12/13/24 11:06 Patient Tobacco Use Status Never used Tobacco 12/13/24 11:06 e-Cigarette/Vaping Use Never Used 12/13/24 11:06 Thrive Assessment: Date of Thrive Assessment Date Thrive assessed 12/13/24 12/13/24 11:06 Const General: cooperative, healthy appearing, comfortable and no acute distress Orientation/consciousness: patient oriented x3 HENMT Head: Yes normocephalic Ears: hearing grossly normal bilaterally General nose exam: Normal external nose present Eyes General: appearance normal, both eyes and all related structures Conjunctivae: conjunctivae normal Neck Neck: Yes full ROM and Yes no lymphadenopathy Resp Effort & Inspection: normal respiratory effort Auscultation: clear to auscultation bilaterally, no crackles, no rales, no rhonchi and no wheezes Cardio Rate: regular rate Rhythm: regular rhythm Skin General skin exam: no rashes or lesions noted Neuro General: patient oriented x3 Gait exam (Neuro): Normal gait present Extrem General: Yes normal to inspection, Yes full ROM and No edema Psych Affect: normal affect Attitude: cooperative Insight: Good insight present (Psych) Judgement: Good judgement present (Psych) Coding Level of Care Code Est Pt Level 3 (42883) Diagnoses Pre-op evaluation Z01.818 Lower back pain M54.50 Assessment & Plan Assessment & Plan (1) Pre-op evaluation: Code(s): Z01.818 - Encounter for other preprocedural examination Category: Medical Plan: Regarding preop clearance, the patient is at moderate risk for proposed surgery. Reviewed with the patient that no surgery is completely free of risk and that this examination is to assist the surgeon in reviewing informed consent. Advised patient she may take all of her medications with the exception of meloxicam up until the day of the procedure. The meloxicam and all other NSAIDs seen to be held 1 week prior to surgery. Blood work was ordered by her surgeon and results are being sent to our office. EKG was ordered. Once the blood work and EKG has been reviewed and are acceptable addendum will be added to note provided clearance. (2) Lower back pain: Code(s): M54.50 - Low back pain, unspecified Category: Medical Plan: Ongoing issue, referral was placed to pain management at patient request. Plan This note was constructed using voice recognition software. While every effort has been made to ensure accuracy and poleyard supervisor, still areas may have been included sometimes these areas may affect the content or meeting of the given symptoms. Total time spent caring for the patient today was twenty minutes. This includes time spent before the visit reviewing the chart, time spent during the visit, and time spent after the visit and documentation. Patient was informed and verbally consented to the use of an ambient scribe for clinic note documentation during this visit. Orders: Orders ECG 12 lead EKG Today Z01.818 - Encounter for other preprocedural examination Referrals Pain Management Referral M54.50 - Low back pain, unspecified Medications: Discontinued alprazolam Discontinued Reason: Patient no longer taking 0.25 mg PO BID 4 days 8 tabs 0RF F41.1 - Generalized anxiety disorder
[2025-05-03 13:40] VITALS: BP 130/62; PULSE 86; TEMP 36.6; BMI 27.8
--- OUTSIDE RECORDS SUMMARY | 2025-05-03 13:40 | XMS_ITS | Clinical Summary ---
Author Organization [facility] Address [address] [facility] [address] [facility] [address] [place] [address] Care Team Providers Care Skid Strapper Name Role Phone Unavailable Primary Care Provider Unavailabl e Encounters Date Type Department Care Team Description 03/07/2025 Orders Only [facility] [address] [place] [id number] Rashaun Sales MD Other specified disorders of bone density and structure, other site; Low back pain, unspecified from Last 3 Months Social History Tobacco Use Types Packs/Day Years Used Date Smoking Tobacco: Never Assessed Comments Unknown Sex and Gender Information Value Date Recorded Sex Assigned at Not on file Legal Sex Female 11:14 AM EDT Gender Identity Not on file Sexual Orientation Not on file Plan of Treatment Health Maintenance Due Date Last Done Comments Bone Density Scan 1940 DTaP/Tdap/Td Vaccines (1 - Tdap) 1961 Pneumococcal Vaccine: 50+ Ye ars (1 of 1 - PCV) 02/07/1992 Zoster Vaccines (1 of 2) 02/07/1992 COVID-19 Vaccine (1 - 2023-2 5 season) 2024 Depression Screening 10/04/2024 Influenza Vaccine (#1) 2025 HIB Vaccines Aged Out No longer eligi ble based on patient's age to complete this topic HPV Vaccines Aged Out No longer eligi ble based on patient's age to complete this topic Hepatitis A Vaccines Aged Out No long er eligible based on patient's age to complete this topic Hepatitis B Vaccines Aged Out No long er eligible based on patient's age to complete this topic IPV Vaccines Aged Out No longer eligi ble based on patient's age to complete this topic Meningococcal B Vaccine Aged Out No l onger eligible based on patient's age to complete this topic Meningococcal Vaccine Aged Out No dulce cassie eligible based on patient's age to complete this topic Rotavirus Vaccines Aged Out No longer eligible based on patient's age to complete this topic
--- OUTSIDE RECORDS SUMMARY | 2025-05-03 13:40 | XMS_ITS | Clinical Summary ---
[facility] Address [facility] [place] [address] Care Team Providers Care Oil Well Services Dispatcher Name Role Phone Unavailable Primary Care Provider Unavailabl e Social History Tobacco Use Types Packs/Day Years Used Date Smoking Tobacco: Never Assessed Comments Unknown Sex and Gender Information Value Date Recorded Sex Assigned at Not on file Legal Sex Female 11:35 AM EDT Gender Identity Not on file Sexual Orientation Not on file Plan of Treatment Health Maintenance Due Date Last Done Comments Tetanus/Diphtheria/Pertussis Vaccines (1 - Tdap) 02/06 Pneumoccocal Vaccine: 50+ (1 of 1 - PCV) 02/07/1992 Zoster vaccine (1 of 2) 02/07/1992 Advance Directive 1997 Bone Density Scan 2007 RSV Vaccine (1 - 1-dose 75+ series) 2017 Covid-19 Vaccine (1 - 2023- season) 2024 Influenza (Flu) vaccine (1 o f 1 - Influenza standard series) 06/04/2025
== END 2025-05-03 14:12 | disposition home or self-care (01) ==
LOC: HO.HMCH 13:29
PROVIDERS: PCP Physician Assistant
DX: Z01.818 Encounter for other preprocedural examination (principal); M54.50 Low back pain, unspecified

== ENCOUNTER → 2025-05-03 13:28 | Outpatient (BNVA) | payer MEDICARE, OTHER, SELFPAY | PROVIDERS: PCP Physician Assistant | DX: Z01.818 Encounter for other preprocedural examination (principal); M54.50 Low back pain, unspecified | CPT/HCPCS: 99212 ==

== ENCOUNTER 2025-05-11 14:22 | Outpatient (REF) | payer MEDICARE, OTHER, SELFPAY ==
--- NOTE | ~2025-05-11 | MM_ITS ---
EXAMINATION: MM SCREENING DIGITAL BREAST TOMOSYNTHESIS, BILATERAL CLINICAL INFORMATION: Screening. Asymptomatic. COMPARISON: Mammography: Comparison is made with available priors TECHNIQUE: Digital breast mammography with tomosynthesis is performed in both the craniocaudal and mediolateral oblique views along with computer-aided detection (CAD). FINDINGS: There are scattered areas of fibroglandular density (ACR BI-RADS breast composition Category b). There are no significant masses, abnormal calcifications, or other abnormalities. MM/MM tomosynthesis screening BI IMPRESSION: No mammographic evidence of malignancy. ASSESSMENT: BI-RADS BI-RADS 1 - Negative RECOMMENDATION: Routine annual mammography screening. 1 year F/U This examination should not preclude the clinical evaluation of a suspicious palpable abnormality. This patient's information was entered into a reminder system with a target due date for their next mammogram. Electronically signed by: Jacy Durbin DO 05/21/2025 01:57 PM EDT
--- OUTSIDE RECORDS SUMMARY | 2025-05-11 14:27 | XMS_ITS | Clinical Summary ---
Author Organization [facility] Address [facility] [place] [address] Care Team Providers Care Supervisor Sawing And Assembly Name Role Phone Unavailable Primary Care Provider [...]
--- OUTSIDE RECORDS SUMMARY | 2025-05-11 14:27 | XMS_ITS | Clinical Summary ---
Author Organization [facility] Address [address] [facility] [address] [facility] [address] [place] [address] Care Team Providers Care Yardage Tufting Machine Operator Name Role Phone Unavailable Primary Care Provider Unavailabl e Encounters Date Type Department Care Team Description 03/07/2025 Orders Only [facility] [address] [place] [id number] Rashaun Sales MD Other specified disorders of [...]
--- NOTE | 2025-05-11 15:03 | ECG_ITS ---
Test Reason : preop Blood Pressure : */* mmHG Vent. Rate : 73 BPM Atrial Rate : 73 BPM P-R Int : 168 ms QRS Dur : 74 ms QT Int : 390 ms P-R-T Axes : 67 -17 16 degrees QTcB Int : 429 ms Normal sinus rhythm Normal ECG When compared with ECG of 20-Jun-2024 11:13, No significant change was found Referred By: Michela Yadav Electronically Signed By: CROW MALIK
== END 2025-05-11 14:23 | disposition home or self-care (01) ==
LOC: HO.MAMMO 14:22
PROVIDERS: PCP Physician Assistant; Visit Provider Physician Assistant
DX: Z01.818 Encounter for other preprocedural examination (principal); Z12.31 Encounter for screening mammogram for malignant neoplasm of breast
CPT/HCPCS: 77063; 77067; 93005

== ENCOUNTER → 2025-05-11 14:45 | Outpatient (BNV) | payer MEDICARE, OTHER, SELFPAY | PROVIDERS: PCP Physician Assistant; Visit Provider Internal Medicine | DX: Z12.31 Encounter for screening mammogram for malignant neoplasm of breast (principal) | CPT/HCPCS: 77063; 77067 ==

== ENCOUNTER → 2025-05-11 15:03 | Outpatient (BNV) | payer MEDICARE, OTHER, SELFPAY | PROVIDERS: PCP Physician Assistant; Visit Provider Internal Medicine | DX: Z13.6 Encounter for screening for cardiovascular disorders (principal) | CPT/HCPCS: 93010 ==

== ENCOUNTER 2025-05-18 14:38 | Outpatient (AMB) | payer MEDICARE, OTHER, SELFPAY ==
--- OUTSIDE RECORDS SUMMARY | 2025-05-18 14:41 | XMS_ITS | Clinical Summary ---
Author Organization [facility] Address [address] [facility] [address] [facility] [address] [place] [address] Care Team Providers Care Coat Presser Name Role Phone Unavailable Primary Care Provider Unavailabl e Encounters Date Type Department Care Team Description 03/07/2025 Orders Only [facility] [address] [place] [id number] Rashaun Sales MD Other specified disorders of [...]
--- OUTSIDE RECORDS SUMMARY | 2025-05-18 14:41 | XMS_ITS | Clinical Summary ---
Author Organization [facility] Address [facility] [place] [address] Care Team Providers Care General Service Technician Name Role Phone Unavailable Primary Care Provider [...]
[2025-05-18 14:43] VITALS: BP 140/65; PULSE 77; RESP 16; O2SAT 95; BMI 27.6
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
== END 2025-05-18 15:30 | disposition home or self-care (01) ==
LOC: HO.PMC 14:39
PROVIDERS: PCP Physician Assistant; Visit Provider Registered Nurse Emergency
DX: M54.50 Low back pain, unspecified (principal); M47.816 Spondylosis without myelopathy or radiculopathy, lumbar region
CPT/HCPCS: 99204; G2211

== ENCOUNTER 2025-05-18 14:38 | Outpatient (REF) | payer MEDICARE, OTHER, SELFPAY ==
--- NOTE | ~2025-05-18 | XR_ITS ---
EXAMINATION: XR LUMBOSACRAL SPINE CLINICAL INFORMATION: M54.50 - Low back pain, unspecified COMPARISON: None available. TECHNIQUE: 6 views of the lumbar spine, inclusive of flexion and extension views, were obtained. FINDINGS: There is normal lumbar lordosis. Moderate dextroscoliosis dorsal spine is noted. The vertebral heights and alignment is normal. There is mild loss of disc height at all disc levels. On oblique views there is no pars defect. No aggressive lytic or sclerotic process seen. The paravertebral soft tissues are normal. SI joints are normal. XR/XR lumbar spine 6V w bending IMPRESSION: Degenerative disc changes with moderate spondylosis. No acute fracture or dislocation seen. Electronically signed by: Rik Wang MD 05/21/2025 07:50 AM EDT
== END 2025-05-18 14:39 | disposition home or self-care (01) ==
LOC: HO.XRAY 14:38
PROVIDERS: PCP Physician Assistant; Visit Provider Registered Nurse Emergency
DX: M47.816 Spondylosis without myelopathy or radiculopathy, lumbar region (principal); M54.50 Low back pain, unspecified; G89.29 Other chronic pain; M17.0 Bilateral primary osteoarthritis of knee; Z79.899 Other long term (current) drug therapy; I10 Essential (primary) hypertension
CPT/HCPCS: 72114; 99202

== ENCOUNTER → 2025-05-18 15:36 | Outpatient (BNV) | payer MEDICARE, OTHER, SELFPAY | PROVIDERS: PCP Physician Assistant; Visit Provider Radiology Diagnostic Radiology | DX: M51.360 Other intervertebral disc degeneration, lumbar region with discogenic back pain only (principal); M47.816 Spondylosis without myelopathy or radiculopathy, lumbar region | CPT/HCPCS: 72114 ==